=== PATIENT | female | born 1930 | race Native Hawaiian/Other Pacific Islander ===

== ENCOUNTER 2016-02-17 09:23 | Inpatient (IN) | payer OTHER | END 2016-03-19 08:00 | disposition still patient (30) | LOC: PAVB 09:23 | PROVIDERS: ADMIT Internal Medicine | DX: Z51.89 Encounter for other specified aftercare (principal) ==

== ENCOUNTER 2016-03-19 09:00 | Inpatient (IN) | payer OTHER ==
[~2016-03-19] VITALS: Ht 154.9 cm; Wt 70.3 kg
== END 2016-04-19 10:14 | disposition still patient (30) ==
LOC: PAVB 09:00
PROVIDERS: ADMIT Internal Medicine
DX: Z51.89 Encounter for other specified aftercare (principal)
CPT/HCPCS: J0897

== ENCOUNTER 2016-04-12 18:31 | Outpatient (CLI) | payer OTHER | END 2016-04-12 23:51 | disposition home or self-care (01) | LOC: LAB 18:31 | DX: R82.99 Other abnormal findings in urine (principal) | CPT/HCPCS: 81000; 87077; 87086; 87088; 87186 ==

== ENCOUNTER 2016-04-19 10:34 | Inpatient (IN) | payer OTHER | END 2016-05-17 09:39 | disposition still patient (30) | LOC: PAVB 10:34 | PROVIDERS: ADMIT Internal Medicine | DX: Z51.89 Encounter for other specified aftercare (principal) ==

== ENCOUNTER 2016-05-17 10:23 | Inpatient (IN) | payer OTHER | END 2016-06-17 08:06 | disposition still patient (30) | LOC: PAVB 10:23 | PROVIDERS: ADMIT Internal Medicine | DX: Z51.89 Encounter for other specified aftercare (principal) ==

== ENCOUNTER 2016-05-26 12:48 | Outpatient (CLI) | payer OTHER | END 2016-05-26 19:17 | disposition home or self-care (01) | LOC: LAB 12:48 | DX: R82.5 Elevated urine levels of drugs, medicaments and biological substances (principal); R82.99 Other abnormal findings in urine | CPT/HCPCS: 81000; 87088 ==

== ENCOUNTER 2016-06-17 09:21 | Inpatient (IN) | payer OTHER | END 2016-07-17 09:08 | disposition still patient (30) | LOC: PAVB 09:21 | PROVIDERS: ADMIT Internal Medicine | DX: Z51.89 Encounter for other specified aftercare (principal) ==

== ENCOUNTER 2016-07-04 16:16 | Outpatient (CLI) | payer OTHER | END 2016-07-04 19:16 | disposition home or self-care (01) | LOC: LAB 16:16 | DX: Z16.24 Resistance to multiple antibiotics (principal); E55.9 Vitamin D deficiency, unspecified | CPT/HCPCS: 82306; 87081 ==

== ENCOUNTER 2016-07-17 09:46 | Inpatient (IN) | payer OTHER | END 2016-08-17 09:31 | disposition still patient (30) | LOC: PAVB 09:46 | PROVIDERS: ADMIT Internal Medicine | DX: Z51.89 Encounter for other specified aftercare (principal) ==

== ENCOUNTER 2016-07-20 10:34 | Outpatient (CLI) | payer OTHER | END 2016-07-20 12:00 | disposition home or self-care (01) | LOC: RAD 10:34 | DX: M85.88 Other specified disorders of bone density and structure, other site (principal) ==

== ENCOUNTER 2016-08-06 11:44 | Outpatient (CLI) | payer OTHER | END 2016-08-06 13:00 | disposition home or self-care (01) | LOC: LAB 11:44 | DX: B43.2 Subcutaneous pheomycotic abscess and cyst (principal) | CPT/HCPCS: 87070; 87205 ==

== ENCOUNTER 2016-08-17 09:48 | Inpatient (IN) | payer OTHER | END 2016-09-16 15:20 | disposition still patient (30) | LOC: PAVB 09:48 | PROVIDERS: ADMIT Internal Medicine | DX: Z51.89 Encounter for other specified aftercare (principal) ==

== ENCOUNTER 2016-09-16 15:34 | Inpatient (IN) | payer OTHER | END 2016-10-17 09:42 | disposition still patient (30) | LOC: PAVB 15:34 | PROVIDERS: ADMIT Internal Medicine | DX: Z51.89 Encounter for other specified aftercare (principal) ==

== ENCOUNTER 2016-09-18 09:15 | Outpatient (CLI) | payer OTHER ==
[2016-09-18 09:36] LABS: PLATELET COUNT 197 K/uL (152-353)
[2016-09-18 10:32] LABS: POTASSIUM 4.1 mmol/L (3.6-5.2); SODIUM 144 mmol/L (136-145)
== END 2016-09-18 10:15 | disposition home or self-care (01) ==
LOC: LAB 09:15
PROVIDERS: Internal Medicine
DX: D51.8 Other vitamin B12 deficiency anemias (principal); E07.89 Other specified disorders of thyroid; D64.89 Other specified anemias; M81.0 Age-related osteoporosis without current pathological fracture; I50.9 Heart failure, unspecified
CPT/HCPCS: 80053; 82306; 82607; 84443; 85027

== ENCOUNTER 2016-10-17 10:06 | Inpatient (IN) | payer OTHER | END 2016-11-17 08:40 | disposition still patient (30) | LOC: PAVB 10:06 | PROVIDERS: ADMIT Internal Medicine | DX: Z51.89 Encounter for other specified aftercare (principal) ==

== ENCOUNTER 2016-11-17 09:03 | Inpatient (IN) | payer OTHER | END 2016-12-17 10:33 | disposition still patient (30) | LOC: PAVB 09:03 | PROVIDERS: ADMIT Internal Medicine | DX: Z51.89 Encounter for other specified aftercare (principal) ==

== ENCOUNTER 2016-12-17 10:35 | Inpatient (IN) | payer OTHER | END 2017-01-17 12:56 | disposition still patient (30) | LOC: PAVB 10:35 | PROVIDERS: ADMIT Internal Medicine ==

== ENCOUNTER 2017-01-17 13:34 | Inpatient (IN) | payer OTHER | END 2017-02-16 09:18 | disposition still patient (30) | LOC: PAVB 13:34 | PROVIDERS: ADMIT Internal Medicine ==

== ENCOUNTER 2017-02-16 09:32 | Inpatient (IN) | payer OTHER | END 2017-03-19 09:29 | disposition still patient (30) | LOC: PAVB 09:32 | PROVIDERS: ADMIT Internal Medicine ==

== ENCOUNTER 2017-03-19 09:56 | Inpatient (IN) | payer OTHER | END 2017-04-19 09:47 | disposition still patient (30) | LOC: PAVB 09:56 | PROVIDERS: ADMIT Internal Medicine ==

== ENCOUNTER 2017-03-21 04:09 | Outpatient (CLI) | payer OTHER ==
[2017-03-21 05:26] LABS: PLATELET COUNT 213 K/uL (152-353)
[2017-03-21 06:02] LABS: POTASSIUM 4.2 mmol/L (3.6-5.2); SODIUM 141 mmol/L (136-145)
== END 2017-03-21 21:33 | disposition home or self-care (01) ==
LOC: LAB 04:09
PROVIDERS: Internal Medicine
DX: M81.0 Age-related osteoporosis without current pathological fracture (principal); E03.8 Other specified hypothyroidism; D64.89 Other specified anemias
CPT/HCPCS: 36415; 80053; 82306; 82607; 84443; 85027

== ENCOUNTER 2017-04-19 10:30 | Inpatient (IN) | payer OTHER | END 2017-05-17 09:18 | disposition still patient (30) | LOC: PAVB 10:30 | PROVIDERS: ADMIT Internal Medicine ==

== ENCOUNTER 2017-05-17 09:47 | Inpatient (IN) | payer OTHER | END 2017-06-17 08:00 | disposition still patient (30) | LOC: PAVB 09:47 | PROVIDERS: ADMIT Internal Medicine ==

== ENCOUNTER 2017-06-17 09:00 | Inpatient (IN) | payer OTHER | END 2017-07-17 09:03 | disposition still patient (30) | LOC: PAVB 09:00 | PROVIDERS: ADMIT Internal Medicine ==

== ENCOUNTER 2017-07-17 09:26 | Inpatient (IN) | payer OTHER | END 2017-08-17 08:51 | disposition still patient (30) | LOC: PAVB 09:26 | PROVIDERS: ADMIT Internal Medicine ==

== ENCOUNTER 2017-08-17 09:11 | Inpatient (IN) | payer OTHER | END 2017-09-16 14:18 | disposition still patient (30) | LOC: PAVB 09:11 | PROVIDERS: ADMIT Internal Medicine ==

== ENCOUNTER 2017-09-16 14:45 | Inpatient (IN) | payer OTHER | END 2017-10-17 08:00 | disposition still patient (30) | LOC: PAVB 14:45 | PROVIDERS: ADMIT Internal Medicine ==

== ENCOUNTER 2017-09-20 11:37 | Outpatient (CLI) | payer OTHER ==
[2017-09-20 12:42] LABS: PLATELET COUNT 222 K/uL (152-353)
[2017-09-20 14:20] LABS: POTASSIUM 4.4 mmol/L (3.6-5.2)
== END 2017-09-20 19:39 | disposition home or self-care (01) ==
LOC: LAB 11:37
PROVIDERS: Internal Medicine
DX: E03.8 Other specified hypothyroidism (principal); M81.0 Age-related osteoporosis without current pathological fracture
CPT/HCPCS: 80053; 82306; 82607; 84443; 85027

== ENCOUNTER 2017-10-17 09:00 | Inpatient (IN) | payer OTHER | END 2017-11-17 10:17 | disposition still patient (30) | LOC: PAVB 09:00 | PROVIDERS: ADMIT Internal Medicine ==

== ENCOUNTER 2017-11-17 10:53 | Inpatient (IN) | payer OTHER | END 2017-12-17 09:18 | disposition still patient (30) | LOC: PAVB 10:53 | PROVIDERS: ADMIT Internal Medicine ==

== ENCOUNTER 2017-11-27 17:05 | Outpatient (CLI) | payer OTHER ==
[2017-11-27 17:28] LABS: PLATELET COUNT 221 K/uL (152-353)
== END 2017-11-27 22:27 | disposition home or self-care (01) ==
LOC: RAD 17:05
PROVIDERS: Internal Medicine
DX: R06.02 Shortness of breath (principal); R05 Cough
CPT/HCPCS: 80048; 83880; 85027

== ENCOUNTER 2017-12-17 10:01 | Inpatient (IN) | payer OTHER | END 2018-01-17 08:46 | disposition still patient (30) | LOC: PAVB 10:01 | PROVIDERS: ADMIT Internal Medicine ==

== ENCOUNTER 2018-01-11 13:33 | Outpatient (CLI) | payer OTHER | END 2018-01-11 19:33 | disposition home or self-care (01) | LOC: RAD 13:33 | DX: M79.89 Other specified soft tissue disorders (principal) ==

== ENCOUNTER 2018-01-17 09:41 | Inpatient (IN) | payer OTHER | END 2018-02-16 08:31 | disposition still patient (30) | LOC: PAVB 09:41 | PROVIDERS: ADMIT Internal Medicine ==

== ENCOUNTER 2018-02-06 09:57 | Outpatient (CLI) | payer OTHER | END 2018-02-06 19:36 | disposition home or self-care (01) | LOC: RESP 09:57 | DX: R60.9 Edema, unspecified (principal); M79.89 Other specified soft tissue disorders; R93.1 Abnormal findings on diagnostic imaging of heart and coronary circulation; Q21.0 Ventricular septal defect | CPT/HCPCS: 93306 ==

== ENCOUNTER 2018-02-16 09:06 | Inpatient (IN) | payer OTHER | END 2018-03-19 11:04 | disposition still patient (30) | LOC: PAVB 09:06 | PROVIDERS: ADMIT Internal Medicine ==

== ENCOUNTER 2018-03-05 12:05 | Outpatient (CLI) | payer OTHER | END 2018-03-05 22:39 | disposition home or self-care (01) | LOC: RAD 12:05 | DX: R13.12 Dysphagia, oropharyngeal phase (principal) ==

== ENCOUNTER 2018-03-19 11:16 | Inpatient (IN) | payer OTHER | END 2018-04-19 10:48 | disposition still patient (30) | LOC: PAVB 11:16 | PROVIDERS: ADMIT Internal Medicine ==

== ENCOUNTER 2018-03-25 04:37 | Outpatient (CLI) | payer OTHER ==
[2018-03-25 06:24] LABS: PLATELET COUNT 221 K/uL (152-353)
[2018-03-25 06:47] LABS: POTASSIUM 4.3 mmol/L (3.6-5.2)
== END 2018-03-25 20:14 | disposition home or self-care (01) ==
LOC: LAB 04:37
PROVIDERS: Internal Medicine
DX: E03.9 Hypothyroidism, unspecified (principal); M81.0 Age-related osteoporosis without current pathological fracture
CPT/HCPCS: 80053; 82607; 84443; 85027

== ENCOUNTER 2018-04-19 11:05 | Inpatient (IN) | payer OTHER | END 2018-05-17 10:16 | disposition still patient (30) | LOC: PAVB 11:05 | PROVIDERS: ADMIT Internal Medicine ==

== ENCOUNTER → 2018-05-16 | Day surgery (SDC) | payer OTHER | LOC: OR 08:00 | DX: Z53.8 Procedure and treatment not carried out for other reasons (principal); R13.19 Other dysphagia; R06.2 Wheezing | CPT/HCPCS: 94640; 94664; 94760 ==

== ENCOUNTER 2018-05-17 10:32 | Inpatient (IN) | payer OTHER | END 2018-06-17 10:36 | disposition still patient (30) | LOC: PAVB 10:32 | PROVIDERS: ADMIT Internal Medicine ==

== ENCOUNTER 2018-05-23 09:00 | Outpatient (CLI) | payer OTHER | END 2018-05-23 19:38 | disposition home or self-care (01) | LOC: US 09:00 | DX: R11.0 Nausea (principal); R60.9 Edema, unspecified ==

== ENCOUNTER 2018-05-28 09:02 | Outpatient (CLI) | payer OTHER | END 2018-05-28 19:37 | disposition home or self-care (01) | LOC: RESP 09:02 | DX: I50.9 Heart failure, unspecified (principal) | CPT/HCPCS: 93306 ==

== ENCOUNTER 2018-06-17 11:11 | Inpatient (IN) | payer OTHER | END 2018-07-17 11:11 | disposition still patient (30) | LOC: PAVB 11:11 | PROVIDERS: ADMIT Internal Medicine ==

== ENCOUNTER 2018-07-17 12:15 | Inpatient (IN) | payer OTHER | END 2018-08-17 08:34 | disposition still patient (30) | LOC: PAVB 12:15 | PROVIDERS: ADMIT Internal Medicine | DX: Z51.89 Encounter for other specified aftercare (principal) ==

== ENCOUNTER 2018-08-17 09:10 | Inpatient (IN) | payer OTHER | END 2018-09-16 09:36 | disposition still patient (30) | LOC: PAVB 09:10 | PROVIDERS: ADMIT Internal Medicine ==

== ENCOUNTER 2018-08-31 10:24 | Outpatient (CLI) | payer OTHER ==
[2018-08-31 10:54] LABS: PLATELET COUNT 278 K/uL (152-353)
[2018-08-31 11:02] LABS: POTASSIUM 4.4 mmol/L (3.6-5.2)
== END 2018-08-31 19:29 | disposition home or self-care (01) ==
LOC: LAB 10:24 → LABW 10:24 → LAB 19:29
PROVIDERS: Internal Medicine
DX: R06.02 Shortness of breath (principal); I95.89 Other hypotension
CPT/HCPCS: 80048; 83880; 85027

== ENCOUNTER 2018-09-16 10:37 | Inpatient (IN) | payer OTHER | END 2018-10-17 10:33 | disposition still patient (30) | LOC: PAVB 10:37 | PROVIDERS: ADMIT Internal Medicine ==

== ENCOUNTER 2018-09-16 19:17 | Outpatient (CLI) | payer OTHER | END 2018-09-16 23:45 | disposition home or self-care (01) | LOC: RAD 19:17 | DX: R05 Cough (principal); R06.02 Shortness of breath; I50.9 Heart failure, unspecified ==

== ENCOUNTER 2018-09-20 19:34 | Outpatient (CLI) | payer OTHER ==
[2018-09-20 19:57] LABS: PLATELET COUNT 305 K/uL (152-353)
[2018-09-20 20:14] LABS: POTASSIUM 3.6 mmol/L (3.6-5.2)
== END 2018-09-20 20:44 | disposition home or self-care (01) ==
LOC: LAB 19:34
PROVIDERS: Internal Medicine
DX: E03.8 Other specified hypothyroidism (principal); Z79.899 Other long term (current) drug therapy
CPT/HCPCS: 80053; 82607; 84443; 85027

== ENCOUNTER 2018-09-24 04:59 | Outpatient (CLI) | payer OTHER | END 2018-09-24 19:57 | disposition home or self-care (01) | LOC: LAB 04:59 | DX: D50.8 Other iron deficiency anemias (principal) | CPT/HCPCS: 36415; 82728; 83540 ==

== ENCOUNTER 2018-10-03 13:47 | Outpatient (CLI) | payer OTHER | END 2018-10-03 23:07 | disposition home or self-care (01) | LOC: RESP 13:47 | DX: J44.9 Chronic obstructive pulmonary disease, unspecified (principal); R05 Cough; R06.02 Shortness of breath ==

== ENCOUNTER 2018-10-17 10:58 | Inpatient (IN) | payer OTHER | END 2018-11-17 16:24 | disposition still patient (30) | LOC: PAVB 10:58 | PROVIDERS: ADMIT Internal Medicine ==

== ENCOUNTER 2018-10-23 13:46 | Outpatient (CLI) | payer OTHER | END 2018-10-23 23:48 | disposition home or self-care (01) | LOC: RAD 13:46 | DX: M79.672 Pain in left foot (principal); S90.32XA Contusion of left foot, initial encounter ==

== ENCOUNTER 2018-10-24 11:32 | Outpatient (CLI) | payer OTHER ==
[2018-10-24 11:44] LABS: PLATELET COUNT 172 K/uL (152-353)
[2018-10-24 12:01] LABS: POTASSIUM 3.3 mmol/L (3.6-5.2)
== END 2018-10-24 23:53 | disposition home or self-care (01) ==
LOC: LAB 11:32
PROVIDERS: Internal Medicine
DX: R41.82 Altered mental status, unspecified (principal)
CPT/HCPCS: 80053; 81000; 85027; 87077; 87086; 87088; 87186

== ENCOUNTER 2018-11-17 16:57 | Inpatient (IN) | payer OTHER | END 2018-12-17 09:19 | disposition still patient (30) | LOC: PAVB 16:57 | PROVIDERS: ADMIT Internal Medicine ==

== ENCOUNTER 2018-12-10 09:53 | Outpatient (CLI) | payer OTHER | END 2018-12-10 19:49 | disposition home or self-care (01) | LOC: MRI 09:53 | DX: M54.2 Cervicalgia (principal); R20.2 Paresthesia of skin ==

== ENCOUNTER 2018-12-11 15:26 | Outpatient (CLI) | payer OTHER | END 2018-12-11 20:34 | disposition home or self-care (01) | LOC: LABW 15:26 | DX: J44.9 Chronic obstructive pulmonary disease, unspecified (principal) ==

== ENCOUNTER 2018-12-17 10:04 | Inpatient (IN) | payer OTHER | END 2019-01-17 11:08 | disposition still patient (30) | LOC: PAVB 10:04 | PROVIDERS: ADMIT Internal Medicine ==

== ENCOUNTER 2018-12-17 13:24 | Outpatient (CLI) | payer OTHER | END 2018-12-17 23:29 | disposition home or self-care (01) | LOC: CT 13:24 | DX: J44.9 Chronic obstructive pulmonary disease, unspecified (principal); R05 Cough; R06.02 Shortness of breath; M85.80 Other specified disorders of bone density and structure, unspecified site; N32.81 Overactive bladder; K22.4 Dyskinesia of esophagus; K44.9 Diaphragmatic hernia without obstruction or gangrene; G25.0 Essential tremor; I50.9 Heart failure, unspecified; M51.87 Other intervertebral disc disorders, lumbosacral region; M50.80 Other cervical disc disorders, unspecified cervical region; G31.83 Neurocognitive disorder with Lewy bodies; E03.8 Other specified hypothyroidism; F06.8 Other specified mental disorders due to known physiological condition ==

== ENCOUNTER 2019-01-14 11:12 | Outpatient (CLI) | payer OTHER | END 2019-01-14 20:19 | disposition home or self-care (01) | LOC: RAD 11:12 | DX: R06.02 Shortness of breath (principal); R05 Cough; R09.02 Hypoxemia ==

== ENCOUNTER 2019-01-16 23:59 | Emergency (ER) | payer OTHER ==
[~2019-01-16] VITALS: Ht 162.6 cm; Wt 71.7 kg
[2019-01-17 01:46] LABS: PLATELET COUNT 179 K/uL (152-353)
[2019-01-17 02:00] LABS: SODIUM 145 mmol/L (136-145)
[2019-01-17 03:47] VITALS: BP 97/43; TEMP 97.2
== END 2019-01-17 03:47 | disposition still patient (30) ==
LOC: ED 23:59
PROVIDERS: Emergency Medicine
DX: I95.9 Hypotension, unspecified (principal); R06.02 Shortness of breath; J44.0 Chronic obstructive pulmonary disease with (acute) lower respiratory infection; I95.89 Other hypotension; J20.9 Acute bronchitis, unspecified; I20.9 Angina pectoris, unspecified; R09.02 Hypoxemia; E03.8 Other specified hypothyroidism
CPT/HCPCS: 36415; 80053; 83605; 83880; 84484; 85027; 87502; 93005; 94664; 96360; 99220; 99284; G0378; G0379

== ENCOUNTER 2019-01-17 03:19 | Observation (INO) | payer OTHER ==
[~2019-01-17] VITALS: Ht 162.6 cm; Wt 73.5 kg
[2019-01-17 04:05] VITALS: BP 117/46; TEMP 97.5; Ht 162.6 cm; Wt 73.5 kg
[2019-01-17 08:00] VITALS: BP 101/49; TEMP 97.7
[2019-01-17 12:00] VITALS: BP 141/63; TEMP 98.6
--- NOTE | 2019-01-17 16:42 | NUR ---
1430 PT DC BACK TO [facility] . SHALOM JOSEPH STATED SHE HAD SPOKE WITH SHALOM BOWMAN AND REC'D ORDERS TO CON'T PT HOME MEDS AND START STEROID DOSE PACK. PT DC'D VIA W/C ACCOMPANIED BY CAMRYN MARQUES.
== END 2019-01-17 14:40 ==
LOC: MED/SURG 03:19
PROVIDERS: ADMIT Emergency Medicine
DX: J44.0 Chronic obstructive pulmonary disease with (acute) lower respiratory infection (principal); I95.89 Other hypotension; J20.9 Acute bronchitis, unspecified; I50.9 Heart failure, unspecified; R09.02 Hypoxemia; E03.8 Other specified hypothyroidism
CPT/HCPCS: 99220; G0378; G0379

== ENCOUNTER 2019-01-17 11:25 | Inpatient (IN) | payer OTHER | END 2019-02-16 08:00 | disposition still patient (30) | LOC: PAVB 11:25 | PROVIDERS: ADMIT Internal Medicine ==

== ENCOUNTER 2019-02-16 10:10 | Inpatient (IN) | payer OTHER | END 2019-03-19 08:33 | disposition still patient (30) | LOC: PAVB 10:10 | PROVIDERS: ADMIT Internal Medicine ==

== ENCOUNTER 2019-03-19 08:43 | Inpatient (IN) | payer OTHER | END 2019-04-19 09:55 | disposition still patient (30) | LOC: PAVB 08:43 | PROVIDERS: ADMIT Internal Medicine ==

== ENCOUNTER 2019-03-25 07:03 | Outpatient (CLI) | payer OTHER ==
[2019-03-25 08:08] LABS: PLATELET COUNT 176 K/uL (152-353)
== END 2019-03-25 17:00 | disposition home or self-care (01) ==
LOC: LAB 07:03
PROVIDERS: Internal Medicine
DX: E03.8 Other specified hypothyroidism (principal); D64.89 Other specified anemias; M85.80 Other specified disorders of bone density and structure, unspecified site
CPT/HCPCS: 80053; 82607; 84443; 85027

== ENCOUNTER 2019-04-19 10:26 | Inpatient (IN) | payer OTHER | END 2019-05-18 13:13 | disposition still patient (30) | LOC: PAVB 10:26 | PROVIDERS: ADMIT Internal Medicine ==

== ENCOUNTER 2019-05-18 13:51 | Inpatient (IN) | payer OTHER | END 2019-06-18 09:39 | disposition still patient (30) | LOC: PAVB 13:51 | PROVIDERS: ADMIT Internal Medicine ==

== ENCOUNTER 2019-06-18 10:08 | Inpatient (IN) | payer OTHER | END 2019-07-18 09:00 | disposition still patient (30) | LOC: PAVB 10:08 | PROVIDERS: ADMIT Internal Medicine ==

== ENCOUNTER 2019-07-18 09:43 | Inpatient (IN) | payer OTHER | END 2019-08-18 09:09 | disposition still patient (30) | LOC: PAVB 09:43 | PROVIDERS: ADMIT Internal Medicine | CPT/HCPCS: 87635; G2023; U0002 ==

== ENCOUNTER 2019-08-18 09:27 | Inpatient (IN) | payer OTHER ==
[2019-09-07] MEDS ORDERED: ALLEGRA ALRG180 M1 PO (05:00)
[2019-09-07] MEDS ORDERED: DONE5TAB PO (05:02)
[2019-09-07] MEDS ORDERED: ASA LOW DOSE81 MG PO (05:06)
[2019-09-07] MEDS ORDERED: DIPH25CA90 PO ×2 (05:09→05:13)
[2019-09-07] MEDS ORDERED: IPRAAER INH (05:21)
[2019-09-07] MEDS ORDERED: DOCUSIL100 MG PO (05:24)
[2019-09-07] MEDS ORDERED: GLYCOLAX3350 NF PO (05:26)
[2019-09-07] MEDS ORDERED: INCRUSE EL62.5 MCG/I INH (05:32)
[2019-09-07] MEDS ORDERED: GENERLAC10 GM/15 M PO ×2 (05:33→05:35)
[2019-09-07] MEDS ORDERED: LAMICTAL XR50 MG PO (05:37)
[2019-09-07] MEDS ORDERED: FURO40TA93 PO (06:17)
[2019-09-07] MEDS ORDERED: LEXAPRO10 MG PO (06:19)
[2019-09-07] MEDS ORDERED: MELATONIN TR10 MG PO (06:24)
[2019-09-07] MEDS ORDERED: ESCI10TA PO (06:26)
[2019-09-07] MEDS ORDERED: MIRAPEX0.25 MG PO (06:29)
[2019-09-07] MEDS ORDERED: MYRBETRIQ50 MG PO (06:31)
[2019-09-07] MEDS ORDERED: GABA300C2 PO ×2 (06:32→07:19)
[2019-09-07] MEDS ORDERED: GABA400C2 PO (07:20)
[2019-09-07] MEDS ORDERED: CALCIUM + D600 MG PO (07:34)
[2019-09-07] MEDS ORDERED: POTASSIUM CHLO20 ME1 PO (07:41)
[2019-09-07] MEDS ORDERED: OMEP40CA PO (07:42)
[2019-09-07] MEDS ORDERED: DENO60SO SC (07:45)
[2019-09-07] MEDS ORDERED: SENNA LAX8.6 MG PO (07:46)
[2019-09-07] MEDS ORDERED: CARB25TA29 PO (07:48)
[2019-09-07] MEDS ORDERED: SEROQUEL200 MG PO (07:48)
[2019-09-07] MEDS ORDERED: BUDE1AER5 INH (07:49)
[2019-09-07] MEDS ORDERED: LEVO0.0529 PO (07:51)
[2019-09-07] MEDS ORDERED: ACET-206 PO (07:52)
[2019-09-07] MEDS ORDERED: ACET-689 PO (07:53)
[2019-09-07] MEDS ORDERED: VITAMIN D-40400 UNIT PO (07:54)
[2019-09-07] MEDS ORDERED: ALPR0.2566 PO (07:55)
[2019-09-07] MEDS ORDERED: ONDA4TAB3 PO (07:57)
[2019-09-09] MEDS ORDERED: CEFU250T2 PO (11:39)
== END 2019-09-17 10:19 | disposition still patient (30) ==
LOC: PAVB 09:27
PROVIDERS: ADMIT Internal Medicine
DX: N30.90 Cystitis, unspecified without hematuria (principal); I50.9 Heart failure, unspecified; M62.81 Muscle weakness (generalized); R26.89 Other abnormalities of gait and mobility; R48.8 Other symbolic dysfunctions; N32.81 Overactive bladder; F02.80 Dementia in other diseases classified elsewhere, unspecified severity, without behavioral disturbance, psychotic disturbance, mood disturbance, and anxiety
CPT/HCPCS: 87635; U0002

== ENCOUNTER 2019-09-06 11:47 | Inpatient (IN) | payer OTHER ==
[2019-09-06] VITALS (10 sets, daily range): BP systolic 91–113; BP diastolic 40–53; TEMP 98.9–99.5; Ht 160 cm; Wt 68.9 kg
[~2019-09-06] VITALS: Ht 160 cm; Wt 68.9 kg
[2019-09-06 12:37] LABS: PLATELET COUNT 208 K/uL (152-353)
[2019-09-06 12:47] LABS: POTASSIUM 5.1 mmol/L (3.6-5.2); SODIUM 147 mmol/L (136-145)
[2019-09-07] VITALS: BP 101/40; TEMP 99
[2019-09-07 03:47] VITALS: BP 111/44; TEMP 98.6
[2019-09-07] MEDS ORDERED: ALLEGRA ALRG180 M1 PO (05:00)
[2019-09-07] MEDS ORDERED: DONE5TAB PO (05:02)
[2019-09-07] MEDS ORDERED: ASA LOW DOSE81 MG PO (05:06)
[2019-09-07] MEDS ORDERED: DIPH25CA90 PO ×2 (05:09→05:13)
[2019-09-07] MEDS ORDERED: IPRAAER INH (05:21)
[2019-09-07] MEDS ORDERED: DOCUSIL100 MG PO (05:24)
[2019-09-07] MEDS ORDERED: GLYCOLAX3350 NF PO (05:26)
[2019-09-07] MEDS ORDERED: INCRUSE EL62.5 MCG/I INH (05:32)
[2019-09-07] MEDS ORDERED: GENERLAC10 GM/15 M PO ×2 (05:33→05:35)
[2019-09-07] MEDS ORDERED: LAMICTAL XR50 MG PO (05:37)
[2019-09-07 05:42] LABS: POTASSIUM 4.2 mmol/L (3.6-5.2)
[2019-09-07 05:56] LABS: PLATELET COUNT 151 K/uL (152-353)
[2019-09-07] MEDS ORDERED: FURO40TA93 PO (06:17)
[2019-09-07] MEDS ORDERED: LEXAPRO10 MG PO (06:19)
[2019-09-07] MEDS ORDERED: MELATONIN TR10 MG PO (06:24)
[2019-09-07] MEDS ORDERED: ESCI10TA PO (06:26)
[2019-09-07] MEDS ORDERED: MIRAPEX0.25 MG PO (06:29)
[2019-09-07] MEDS ORDERED: MYRBETRIQ50 MG PO (06:31)
[2019-09-07] MEDS ORDERED: GABA300C2 PO ×2 (06:32→07:19)
[2019-09-07] MEDS ORDERED: GABA400C2 PO (07:20)
[2019-09-07] MEDS ORDERED: CALCIUM + D600 MG PO (07:34)
[2019-09-07] MEDS ORDERED: POTASSIUM CHLO20 ME1 PO (07:41)
[2019-09-07] MEDS ORDERED: OMEP40CA PO (07:42)
[2019-09-07] MEDS ORDERED: DENO60SO SC (07:45)
[2019-09-07] MEDS ORDERED: SENNA LAX8.6 MG PO (07:46)
[2019-09-07] MEDS ORDERED: CARB25TA29 PO (07:48)
[2019-09-07] MEDS ORDERED: SEROQUEL200 MG PO (07:48)
[2019-09-07] MEDS ORDERED: BUDE1AER5 INH (07:49)
[2019-09-07] MEDS ORDERED: LEVO0.0529 PO (07:51)
[2019-09-07] MEDS ORDERED: ACET-206 PO (07:52)
[2019-09-07] MEDS ORDERED: ACET-689 PO (07:53)
[2019-09-07] MEDS ORDERED: VITAMIN D-40400 UNIT PO (07:54)
[2019-09-07] MEDS ORDERED: ALPR0.2566 PO (07:55)
[2019-09-07] MEDS ORDERED: ONDA4TAB3 PO (07:57)
[2019-09-07 08:00] VITALS: BP 111/45; TEMP 98.2
[2019-09-07 12:00] VITALS: TEMP 97.6
[2019-09-07 16:00] VITALS: BP 97/40; TEMP 97.9
[2019-09-07 20:00] VITALS: BP 106/47; TEMP 97.9
[2019-09-08] VITALS (7 sets, daily range): BP systolic 80–120; BP diastolic 36–57; TEMP 97.6–98.5
[2019-09-08 06:15] LABS: PLATELET COUNT 148 K/uL (152-353)
[2019-09-08 06:22] LABS: POTASSIUM 3.8 mmol/L (3.6-5.2)
[2019-09-09 03:44] VITALS: BP 109/48; TEMP 97.7
[2019-09-09 08:00] VITALS: BP 144/66; TEMP 99.9
[2019-09-09] MEDS ORDERED: CEFU250T2 PO (11:39)
[2019-09-09 12:00] VITALS: BP 111/54; TEMP 98
== END 2019-09-09 19:01 | DRG 690 ==
LOC: ED 11:47 → MED/SURG 14:10
PROVIDERS: Internal Medicine Endocrinology, Diabetes & Metabolism; ADMIT Emergency Medicine Emergency Medical Services
DX: N30.00 Acute cystitis without hematuria (principal); F31.89 Other bipolar disorder; J96.11 Chronic respiratory failure with hypoxia; B96.20 Unspecified Escherichia coli [E. coli] as the cause of diseases classified elsewhere; E03.8 Other specified hypothyroidism; K21.9 Gastro-esophageal reflux disease without esophagitis; F41.8 Other specified anxiety disorders; F03.90 Unspecified dementia, unspecified severity, without behavioral disturbance, psychotic disturbance, mood disturbance, and anxiety; N32.81 Overactive bladder; M81.8 Other osteoporosis without current pathological fracture; J44.9 Chronic obstructive pulmonary disease, unspecified; Z99.81 Dependence on supplemental oxygen; I11.0 Hypertensive heart disease with heart failure; I50.9 Heart failure, unspecified
CPT/HCPCS: 36415; 80048; 80053; 81000; 83605; 83880; 84484; 85027; 87040; 87077; 87086; 87088; 87185; 87186; 87205; 87635; 93005; 94640; 94664; 94760; 96360; 96361; 96365; 96368; 96375; 99284; J0696; J1650; J1940; J2060; J2405; U0002

== ENCOUNTER 2019-09-17 10:55 | Inpatient (IN) | payer OTHER ==
[~2019-09-17 10:55] MED LIST: ACET-206 PO; ACET-689 PO; ALLEGRA ALRG180 M1 PO; ALPR0.2566 PO; ASA LOW DOSE81 MG PO; BUDE1AER5 INH; CALCIUM + D600 MG PO; CARB25TA29 PO; CEFU250T2 PO; DENO60SO SC; DIPH25CA90 PO; DOCUSIL100 MG PO; DONE5TAB PO; ESCI10TA PO; FURO40TA93 PO; GABA300C2 PO; GABA400C2 PO; GENERLAC10 GM/15 M PO; GLYCOLAX3350 NF PO; INCRUSE EL62.5 MCG/I INH; IPRAAER INH; LAMICTAL XR50 MG PO; LEVO0.0529 PO; LEXAPRO10 MG PO; MELATONIN TR10 MG PO; MIRAPEX0.25 MG PO; MYRBETRIQ50 MG PO; OMEP40CA PO; ONDA4TAB3 PO; POTASSIUM CHLO20 ME1 PO; SENNA LAX8.6 MG PO; SEROQUEL200 MG PO; VITAMIN D-40400 UNIT PO
== END 2019-10-18 09:11 | disposition still patient (30) ==
LOC: PAVB 10:55
PROVIDERS: ADMIT Internal Medicine
DX: N30.90 Cystitis, unspecified without hematuria (principal); I50.9 Heart failure, unspecified; M62.81 Muscle weakness (generalized); R26.89 Other abnormalities of gait and mobility; R48.8 Other symbolic dysfunctions; N32.81 Overactive bladder; F02.80 Dementia in other diseases classified elsewhere, unspecified severity, without behavioral disturbance, psychotic disturbance, mood disturbance, and anxiety
CPT/HCPCS: 80053; 82306; 82607; 84443; 85027; 87635; U0002

== ENCOUNTER 2019-09-19 07:15 | Outpatient (CLI) | payer OTHER ==
[2019-09-19 08:16] LABS: PLATELET COUNT 225 K/uL (152-353)
[2019-09-19 08:36] LABS: POTASSIUM 4.3 mmol/L (3.6-5.2)
== END 2019-09-19 19:33 | disposition home or self-care (01) ==
LOC: LAB 07:15
PROVIDERS: Internal Medicine
DX: E03.8 Other specified hypothyroidism (principal); D64.89 Other specified anemias; M85.88 Other specified disorders of bone density and structure, other site
CPT/HCPCS: 80053; 82306; 82607; 84443; 85027

== ENCOUNTER 2019-10-18 09:31 | Inpatient (IN) | payer OTHER | END 2019-11-18 12:00 | disposition still patient (30) | LOC: PAVB 09:31 | PROVIDERS: ADMIT Internal Medicine | DX: N30.90 Cystitis, unspecified without hematuria (principal); I50.9 Heart failure, unspecified; M62.81 Muscle weakness (generalized); R26.89 Other abnormalities of gait and mobility; R48.8 Other symbolic dysfunctions; N32.81 Overactive bladder; F02.80 Dementia in other diseases classified elsewhere, unspecified severity, without behavioral disturbance, psychotic disturbance, mood disturbance, and anxiety ==

== ENCOUNTER 2019-11-03 05:06 | Outpatient (CLI) | payer OTHER | END 2019-11-03 20:14 | disposition home or self-care (01) | LOC: LAB 05:06 | DX: E55.9 Vitamin D deficiency, unspecified (principal); M15.8 Other polyosteoarthritis; M85.88 Other specified disorders of bone density and structure, other site | CPT/HCPCS: 82306; 82310 ==

== ENCOUNTER 2019-11-18 12:53 | Inpatient (IN) | payer OTHER | END 2019-12-18 11:03 | disposition still patient (30) | LOC: PAVB 12:53 | PROVIDERS: ADMIT Internal Medicine | DX: J44.1 Chronic obstructive pulmonary disease with (acute) exacerbation (principal); I50.9 Heart failure, unspecified; M62.81 Muscle weakness (generalized); R26.9 Unspecified abnormalities of gait and mobility; R53.1 Weakness; Z74.1 Need for assistance with personal care; G31.83 Neurocognitive disorder with Lewy bodies; F31.4 Bipolar disorder, current episode depressed, severe, without psychotic features; F41.1 Generalized anxiety disorder; K22.70 Barrett's esophagus without dysplasia; M15.9 Polyosteoarthritis, unspecified ==

== ENCOUNTER 2019-12-18 11:23 | Inpatient (IN) | payer OTHER | END 2020-01-18 08:00 | disposition still patient (30) | LOC: PAVB 11:23 | PROVIDERS: ADMIT Internal Medicine ==

== ENCOUNTER 2020-01-18 09:00 | Inpatient (IN) | payer OTHER | END 2020-02-17 09:58 | disposition still patient (30) | LOC: PAVB 09:00 | PROVIDERS: ADMIT Internal Medicine; ATTEND Internal Medicine ==

== ENCOUNTER 2020-02-17 10:58 | Inpatient (IN) | payer OTHER | END 2020-03-19 09:03 | disposition still patient (30) | LOC: PAVB 10:58 | PROVIDERS: ADMIT Internal Medicine; ATTEND Internal Medicine ==

== ENCOUNTER 2020-02-23 16:39 | Outpatient (CLI) | payer OTHER ==
[2020-02-23 17:53] LABS: PLATELET COUNT 202 K/uL (152-353)
[2020-02-23 18:13] LABS: POTASSIUM 4.4 mmol/L (3.6-5.2)
== END 2020-02-23 19:10 | disposition home or self-care (01) ==
LOC: LAB 16:39
PROVIDERS: ATTEND Internal Medicine
DX: R41.0 Disorientation, unspecified (principal)
CPT/HCPCS: 80053; 85027

== ENCOUNTER 2020-03-06 06:27 | Outpatient (CLI) | payer OTHER | END 2020-03-06 19:01 | disposition home or self-care (01) | LOC: LAB 06:27 | PROVIDERS: ATTEND Internal Medicine | DX: N39.0 Urinary tract infection, site not specified (principal) | CPT/HCPCS: 81000 ==

== ENCOUNTER 2020-03-19 09:14 | Inpatient (IN) | payer OTHER | END 2020-04-19 14:55 | disposition still patient (30) | LOC: PAVB 09:14 | PROVIDERS: ADMIT Internal Medicine; ATTEND Internal Medicine ==

== ENCOUNTER 2020-03-25 07:08 | Outpatient (CLI) | payer OTHER ==
[2020-03-25 08:33] LABS: PLATELET COUNT 170 K/uL (152-353)
[2020-03-25 09:02] LABS: POTASSIUM 4.4 mmol/L (3.6-5.2)
== END 2020-03-25 21:07 | disposition home or self-care (01) ==
LOC: LAB 07:08
PROVIDERS: ATTEND Internal Medicine
DX: E03.8 Other specified hypothyroidism (principal); I10 Essential (primary) hypertension; M85.88 Other specified disorders of bone density and structure, other site; D64.89 Other specified anemias
CPT/HCPCS: 80053; 82306; 82607; 84443; 85027

== ENCOUNTER 2020-04-19 15:06 | Inpatient (IN) | payer OTHER | END 2020-05-17 09:54 | disposition still patient (30) | LOC: PAVB 15:06 | PROVIDERS: ADMIT Internal Medicine; ATTEND Internal Medicine ==

== ENCOUNTER 2020-05-05 06:59 | Outpatient (CLI) | payer OTHER ==
[2020-05-05 08:08] LABS: PLATELET COUNT 166 K/uL (152-353)
[2020-05-05 08:10] LABS: POTASSIUM 4.3 mmol/L (3.6-5.2)
== END 2020-05-05 20:48 | disposition home or self-care (01) ==
LOC: LAB 06:59
PROVIDERS: ATTEND Internal Medicine
DX: Z00.00 Encounter for general adult medical examination without abnormal findings (principal); R68.89 Other general symptoms and signs; Z79.899 Other long term (current) drug therapy
CPT/HCPCS: 80053; 85027

== ENCOUNTER 2020-05-13 07:41 | Day surgery (SDC) | payer OTHER | END 2020-05-13 09:59 | disposition home or self-care (01) | LOC: OR 07:41 | PROVIDERS: ATTEND Internal Medicine | PROC: 0DB68ZZ Excision of Stomach, Via Natural or Artificial Opening Endoscopic (ICD-10-PCS; principal; 2020-05-13) | PROC: 0D738ZZ Dilation of Lower Esophagus, Via Natural or Artificial Opening Endoscopic (ICD-10-PCS; 2020-05-13) | DX: K29.50 Unspecified chronic gastritis without bleeding (principal); K22.2 Esophageal obstruction; R13.19 Other dysphagia | CPT/HCPCS: J2704 ==

== ENCOUNTER 2020-05-23 19:21 | Inpatient (IN) | payer OTHER ==
[2020-05-23] VITALS (16 sets, daily range): BP systolic 78–98; BP diastolic 33–42; TEMP 98.1–99.2; Ht 162.6 cm; Wt 72.8 kg
[~2020-05-23] VITALS: Ht 162.6 cm; Wt 72.8 kg
[2020-05-23 20:01] LABS: PLATELET COUNT 216 K/uL (152-353)
[2020-05-23 20:06] LABS: POTASSIUM 5.4 mmol/L (3.6-5.2); SODIUM 142 mmol/L (136-145)
--- NOTE | 2020-05-23 22:30 | NUR ---
PT O2 SAT 85-83% ON 50% VENTI MASK, RESPIRATORY AT BEDSIDE WITH MUSIC SUPERVISOR AND NEW ORDER OBTAINED FOR RESPIRATORY TO PLACE PT ON HIGH FLOW NC. PT PLACED ON HIGH FLOW NC PER RESPIRATORY AT THIS TIME. O2 SAT STARTING TO INCREASE. AT 2233 O2 SAT HAS INCREASED TO 87% CONTINUES TO INCREASE, NO ACUTE DISTRESS NOTED, RESP RATE 20-22. NOTE WHEN PT BEING PLACE ON HIGH FLOW NC AND WAS ON ROOM AIR O2 SAT DROPPED TO 70%. RESPIRATORY AND MUSIC SUPERVISOR REMAIN AT BEDSIDE WITH PT. NOT LOOSE/WET SOUNDING COUGH AT TIMES BUT NOT PRODUCTIVE. WILL CONTINUE TO MONITOR CLOSELY, RAILS UP X3, BED IN LOW POSITION, ENCOURAGED TO CALL NEEDED.
--- NOTE | 2020-05-23 22:55 | NUR ---
O2 SAT HAS NOW INCREASED TO 90%, PT REMAINS ON HIGH FLOW NC. SETTINGS ARE 60 LITERS AND FIO2 OF 80%, NO ACUTE DISTRESS NOTED, PT RESTING OFF AND ON WITH EYES CLOSED, WILL MONITOR CLOSELY, RAILS UP, BED IN LOW POSITION.
[2020-05-24] VITALS (41 sets, daily range): BP systolic 85–116; BP diastolic 33–53; TEMP 98.1–99.4
--- NOTE | 2020-05-24 00:02 | NUR ---
RESTING WITH EYES CLOSED, NO S/S OF PAIN OR DISTRESS NOTED, 20G IV INTACT TO R AC, 20G IV INTACT TO L WRIST WITH ANTIBIOTIC ONGOING, 16F LOCO PATENT DRAINING TO BEDSIDE, HIGH FLOW NC IN USE AT 60 LITERS AND FIO2 OF 80% O2 SAT 90%, VITALS BEING MONITORED CLOSELY ALONG WITH BLOOD PRESSURE(LOW ON ADMIT AND IN ER, IS AWARE). FOOD SAFETY MANAGER IN USE WITH REGULAR RATE IN 70s. WILL MONITOR CLOSELY, RAILS UP X3, BED IN LOW POSITION.
--- NOTE | 2020-05-24 02:12 | NUR ---
PT AWAKE WITH NO ACUTE DISTRESS NOTED, TALKING WITH SONG LYRICIST, DENIES ANY PAIN OR OTHER PROBLEMS, IV SITES INTACT, LOCO PATENT DRAINING TO BEDSIDE, RESP RATE NONLABORED, REMAINS ON HIGH FLOW NC, VITALS CONTINUE TO BE MONITORED CLOSELY, DRIVER MEDIC IN USE. PT STATES SHE IS HOT, BLANKET TAKEN OFF OF PT PER REQUEST AND PT REPOSITIONED IN BED, WILL MONITOR CLOSELY, RAILS UP X3, BED IN LOW POSITION, ENCOURAGED TO CALL NEEDED.
[2020-05-24] MEDS ORDERED: ZYRTEC ALLERGY10 M1 PO (02:36)
[2020-05-24] MEDS ORDERED: CALCIUM 600600 MG PO (02:40)
[2020-05-24] MEDS ORDERED: OMEPRAZOLE DR40 MG PO (02:47)
[2020-05-24] MEDS ORDERED: GUAIFENESIN/DEX1 LI2 PO (03:05)
[2020-05-24] MEDS ORDERED: PHYSICIANS1000 MCG/M IM (03:23)
[2020-05-24] MEDS ORDERED: TRAM50TA PO (03:27)
--- NOTE | 2020-05-24 03:45 | NUR ---
RESTING WITH EYES CLOSED, NO S/S OF PAIN OR DISTRESS NOTED, VITALS BEING MONITORED CLOSELY, RAILS UP, BED IN LOW POSITION.
--- NOTE | 2020-05-24 04:38 | NUR ---
0433 GAVE TYLENOL 500MG PO PRN PER PT REQUEST FOR CONSTANT HEADACHE THAT IS A "7" ON SCALE, THEN AT 0438 PT REQUESTS SOMETHING FOR NAUSEA GAVE ZOFRAN 4MG SLOW IVP PRN. WILL MONITOR CLOSELY, RAILS UP, BED IN LOW POSITION.
--- NOTE | 2020-05-24 05:00 | NUR ---
RESTING WITH EYES CLOSED, NO S/S OF PAIN OR NAUSEA OR DISTRESS NOTED, WILL MONITOR, RAILS UP, BED IN LOW POSITION.
--- NOTE | 2020-05-24 05:27 | NUR ---
AWAKE TALKING WITH RN PALLIATIVE CARE FROM ACROSS THE ROOM, CONFUSED KNOWS SHE IS AT HOSPITAL BUT THINKS [facility] [place] [facility] [facility]. REMEMBERS THAT SHE IS SICK AND RN PALLIATIVE CARE GAVE HER ANTIBIOTICS AND REMEMBERS DETAILS TO CARE GIVEN DURING THE NIGHT BY RN PALLIATIVE CARE. REORIENTED PT AND EXPLAINED THAT WOULD BE HERE TO SEE HER THIS MORNING AND THAT SHE WILL GET SOME MORE ANTIBIOTICS. PT REMAINS CONFUSED OFF AND ON, CONFUSED TO TIME ALSO. BOTH IV SITES INTACT AND 1 BAG OF NS ONGOING, RESP RATE 22, O2 SAT 93% ON HIGH FLOW NC 60 LITERS AND FIO2 80%, VITALS BEING MONITORED CLOSELY, RAILS UP, BED IN LOW POSITION, HOB ELEVATED, LOCO PATENT DRAINING TO BEDSIDE.
[2020-05-24 06:39] LABS: POTASSIUM 4.7 mmol/L (3.6-5.2)
[2020-05-24 07:08] LABS: PLATELET COUNT 165 K/uL (152-353)
--- NOTE | 2020-05-24 07:43 | NUR ---
REPORT GIVEN BY DOMINIQUE HOLGUIN RN. SHIFT ASSESSMENT COMPLETED. PATIENT HAS TWO IV SITES ONE 20G TO THE LEFT WRIST AND ONE 20G TO THE RIGHT AC BOTH ARE INFUSING WITHOUT DIFFICULTY AND HAVING NS AT 100 ML/HR AND ZOSYN AT 100 ML/HR THERE ARE NO SIGNS OF INFILTRATION OR PHLEBITITS NOTED. RT IS AT THE BEDSIDE GIVING BREATHING TREATMENTS AT THIS TIME. PATIENT IS RECEPETIVE TO TREATMENT AND IS TOLERATING IT WELL.
--- NOTE | 2020-05-24 08:26 | NUR ---
IV 22G X 1 ATTEMPT STARTED TO THE RIGHT FOREARM W/O DIFFICULTY. PATIENT TOLERATED WELL.
--- NOTE | 2020-05-24 09:08 | NUR ---
SPOKE WITH AND SHE WAS UPDATED ON PATIENTS VITALS AND LABS. NEW ORDER GIVEN TO DECREASE FLUIDS FROM 150ML/HR TO 75 ML/HR.
--- NOTE | 2020-05-24 10:14 | NUR ---
PATIENT IS RESTING COMFORTABLY WITH CURRENT SPO2 90%, B/P 94/45.
--- NOTE | 2020-05-24 11:29 | NUR ---
RESPIRATORY HERE AT THE BEDSIDE DOING BREATHING TREATMENT.
--- NOTE | 2020-05-24 12:26 | NUR ---
PATIENT ASSISTED WITH SETTING UP HER LUNCH TRAY. PATIENT IS ABLE TO EAT ON HER OWN BUT SHE HAS MODERATE SHAKING OF BOTH HANDS WHEN PUTTING THE SPOON TO HER MOUTH. PATIENT ALSO STATED " I DO NOT LIKE THIS FOOD LIKE THIS", PATIENT IS ON A PUREE DIET. PATIENT ENCOURAGED TO TAKE SMALL BITES.
--- NOTE | 2020-05-24 13:19 | NUR ---
ROUNDING ON PATIENT AT THIS TIME. NO NEW ORDERS GIVEN.
--- NOTE | 2020-05-24 14:00 | NUR ---
PATIENT HAS PERIODS OF CONFUSION STATING " THERE IS A MAN IN HERE BE CAREFUL, HE IS MOVING THE CHAIR". REDIRECTED PATIENT BUT SHE IS IS NOT EASILY REDIRECTED SHE REQUIRES MAX REDIRECTION. SIDERAILS UP X2, CALL SWIFT WITHIN REACH.
--- NOTE | 2020-05-24 16:25 | NUR ---
RT AT THE BEDSIDE DOING BREATHING TREATMENT.
--- NOTE | 2020-05-24 17:23 | NUR ---
PATIENT ASSISTED WITH EATING BUT SHE ONLY TOOK A FEW BITES AND THEN STATED " I CAN'T EAT ANYMORE OF THIS", PATIENT IS ON A PUREE DIET AND DOES NOT LIKE HER DIET. PATIENT DID DRINK HER TEA.
--- NOTE | 2020-05-24 18:17 | NUR ---
PATIENT COMPLAINING OF GENERALIZED PAIN. PATIENT GIVEN TRAMADOL ORDERED. TORRES LANDIS SCORE 5
--- NOTE | 2020-05-24 18:17 | NUR ---
PATIENT COMPLAINS OF GENERALIZED PAIN. PATIENT GIVEN TRAMADOL ORDERED. TORRES LANDIS SCORE OF 5. PATIENT COMPLAINS OF PAIN TO LOWER EXTREMITIES. WILL REASSESS POST MEDICATION.
--- NOTE | 2020-05-24 20:00 | NUR ---
PM ASSESSMENT WAS COMPLETED. PT WAS ABLE TO COMMUNICATE WITH HER DAUGHTER WAYNE USING ICU PHONE. IV IS CONVERTED TO SALINE LOCK. SITE IS WITHOUT REDNESS OR EDEMA. PT WAS ABLE TO TOLERATE DRINKING WATER. LOCO CATHETAR IS INTACT. BEDSIDE TABLE IN EASY REACH.
--- NOTE | 2020-05-24 21:20 | NUR ---
PT WAS ABLE TO TAKE HER PM MEDICATIONS. PT HAS LOOSE RATTLING COUGH. 02 SATS ARE 90 PERCENT.
--- NOTE | 2020-05-24 22:41 | NUR ---
PT WAS REPOSITIONED ON BED. LOWER EXTREMITIES ELEVATED ON PILLOW. PT CONTINUES TO REST AND USING HIGH FLOW NASAL CANNULA. HR IS 86. O2 SATS IMPROVED TO 93 PERCENT.
[2020-05-25] VITALS (20 sets, daily range): BP systolic 97–122; BP diastolic 37–61; TEMP 97.2–98.7
--- NOTE | 2020-05-25 00:16 | NUR ---
PT TOLERATED AEROSOL TREATMENT. PT IS ALERT AND DENIES ANY PAIN OR DISCOMFORT. PTS SATUATION IS 89-92 PERCENT. HR IS SINUS RHYTHM AT PRESENT. HR IS 76.
--- NOTE | 2020-05-25 02:00 | NUR ---
PT CONTINUES TO REST WITH EYES CLOSED. RESP EVEN ANED NONLABORED. PT USING HIGH FLOW OXYGEN AT 60 PERCENT. O2 SAT IS 92 PERCENT.
--- NOTE | 2020-05-25 04:00 | NUR ---
PT TOLERATED RESP TREATMENT WITHOUT DIFFICULTY. HR IS 89. O2 SATS ARE 90 PERCENT.
--- NOTE | 2020-05-25 06:41 | NUR ---
PT WAS GIVEN BED BATH. LINENS CHANGED. PT RECEIVED ORAL CARE. LIPS MOISTURIZED. SKIN WAS REASSESSED. NOT SKIN BREAKDOWN NOTED. NO REDNESS OR SKIN IMPAIRMENT NOTED. PT COUGHING. HR IS 105/46. O2 SAT IS 93 PERCENT.
--- NOTE | 2020-05-25 07:10 | NUR ---
SHIFT REPORT GIVEN FROM OPAL SALAZAR RN. UPON ROUNDING PATIENT IS NOTED RESTING WITH EYES CLOSED. NO ACUTE DISTRESS WAS NOTED.
--- NOTE | 2020-05-25 08:19 | NUR ---
PATIENTS TRAY SETUP AND PATIENT WAS ABLE TO FEED HERSELF AND ATE APPROX. 75% OF HER MEAL AND 2-4 OZ ORANGE JUICE.
--- NOTE | 2020-05-25 08:21 | NUR ---
PATIENT IS AWAKE AND SHIFT ASSESSMENT IS COMPLETED AT THIS TIME. PATIENT STATED SHE HAD GOOD SLEEP LAST NIGHT AND RESTED WELL. PATIENT IS NOTED WITH A CONGESTED COUGH WITH PATIENT ATTEMPTING TO CLEAR UP SECRETIONS BUT UNABLE TO DO SO. 20G TO THE RIGHT AC IS PATENT AND INTACT. 20G TO THE LEFT WRIST IS SALINE LOCKED AND NO S/S OF INFILTRATION NOTED. 22G TO THE RAC IS PATENT AND INTACT AND HAS NO S/S OF INFILTRATION NOTED. ALL IV FLUSH WELL. BOTH LOWER EXTREMITIES ELEVATED ON PILLOWS. BED LOCKED IN LOW POSITION, SIDE RAILS UP X2.
[2020-05-25 08:31] LABS: PLATELET COUNT 154 K/uL (152-353)
--- NOTE | 2020-05-25 08:40 | NUR ---
PATIENT GIVEN HER PILLS AND SHE WAS ABLE TO TAKE THEM WHOLE W/O DIFFICULTY.
[2020-05-25 08:41] LABS: POTASSIUM 3.8 mmol/L (3.6-5.2)
--- NOTE | 2020-05-25 10:07 | NUR ---
PATIENT IS CURRENTLY RESTING WITH EYES CLOSED WITH CURRENT SPO2 SATS AT 93% ON 50LPM --60% ON HIGH FLOW NASAL CANNULA, HR -88 WITH RR-23.
--- NOTE | 2020-05-25 10:46 | NUR ---
HERE ROUNDING ON PATIENT.
--- NOTE | 2020-05-25 11:08 | NUR ---
RT IS HERE AT THE BEDSIDE DOING BREATHING TREATMENTS. CURRENT SPO2 92%, WITH HR-77, RR-21.
--- NOTE | 2020-05-25 12:40 | NUR ---
X-RAY DEPARTMENT HERE TO DO CHEST X-RAY.
--- NOTE | 2020-05-25 13:35 | NUR ---
NOTIFIED REGARDING X-RAY RESULTS. ORDERS GIVEN TO NOTIFY RESPIRATORY TO DO AGRESSIVE PULMONARY HYGIENE- SMART VEST-CPT, DEEP SUCTION LAVAGE IN ATTEMPT TO CLEAR SECRETIONS FROM THE LUNGS. NOTIFIED RT AT THIS TIME.
--- NOTE | 2020-05-25 14:01 | NUR ---
PATIENT PLACED ON THE SMARTVEST AT THIS TIME PER RT DEPARTMENT. PATIENT IS CURRENTLY TOLERATING TREATMENT WELL.
--- NOTE | 2020-05-25 15:38 | NUR ---
PATIENT ASSISTED ON TO THE BEDPAN. PATIENT HAD A LARGE BROWN FORMED BOWEL MOVEMENT. PATIENT CLEANED AND PERICARE PROVIDED AT THIS TIME.
--- NOTE | 2020-05-25 15:52 | NUR ---
RT DOING BREATHING TREATMENT AT THE BEDSIDE WITH PATIENT CURRENT SPO2 SAT 92%, HR 99, B/P 104/37. PATIENT IS TOLERATING WITH INTERMITTENT COUGHING NOTED. WILL CONTINUE TO MONITOR.
--- NOTE | 2020-05-25 17:24 | NUR ---
PATIENT BLOOD PRESSURE NOTED READING LOW ON HER LEFT ARM 87/42. MANUAL BLOOD PRESSURE TAKEN READING 80/52. BLOOD PRESSURE READ ON THE RIGHT ARM AND IT READ 105/54.
--- NOTE | 2020-05-25 17:25 | NUR ---
PATIENT IS RESTING QUIETLY WITH EYES CLOSED WITH CURRENT SPO2 93% ON HIGH FLOW NASAL CANNULA, PATIENT DID TAKE HER NC OFF AND DID DESAT TO THE 86% BUT QUICKLY RECOVERS BACK UP TO 92%. CURRENT BLOOD PRESSURE READING 114/58.
--- NOTE | 2020-05-25 19:37 | NUR ---
RESP AT BEDSIDE. SMART VEST THERAPY IN PROGRESS.
--- NOTE | 2020-05-25 20:21 | NUR ---
PT HAS CONGESTED COUGH. ABLE TO BRING UP SMALL WHITE SECRETIONS.
--- NOTE | 2020-05-25 23:01 | NUR ---
PT EXPRESSED THAT SHE WAS HUNGER. PT WAS ABLE TO EAT THICK GRAVY SOUP. NO DIFFICULTY IN SWALLOWING WAS NOTED. PT HAD MODERATE SOFT BROWN STOOL. PT WAS CLEANED AND NO SKIN BREAKDOWN WAS NOTED. PT WAS REPOSITIONED UP IN BED. CLEAN CHUX AND BRIEFS WERE APPLIED. ALTERATION IN ELIMANATION ADDRESSED. PT STILL CONTINUES TO HAVE CROUPY CONGESTED COUGH.
[2020-05-26] VITALS (16 sets, daily range): BP systolic 93–130; BP diastolic 40–61; TEMP 96.8–98.8
--- NOTE | 2020-05-26 01:50 | NUR ---
PT STILL HAS AUDIBLE CONGESTION. PT DOES COUGH AND ATTEMPTS TO BRING UP SECRETIONS. PT REFUSES TO BE SUCTIONED. SHE STATES THAT SHE DOES THIS ALL THE TIME. ASPIRATION PRECAUTIONS ARE BEING IMPLEMENTED.
--- NOTE | 2020-05-26 04:15 | NUR ---
XRAY HERE TO PERFORM CXR. PT WITH NAD. O2 SAT ARE 99 PERCENT.
[2020-05-26 05:45] LABS: PLATELET COUNT 152 K/uL (152-353)
--- NOTE | 2020-05-26 06:28 | NUR ---
PT HAD LARGE BROWN SOFT STOOL. PT WAS CLEANED. LINENS AND CHUX WERE CHANGED. BRIEF APPLIED. POSITIONED PT ON HER LEFT SIDE. PT TOLERATED. O2 SAT IS 95 PERCENT. PT USING HIGH FLOW OXYGEN.
--- NOTE | 2020-05-26 08:54 | NUR ---
PT ASSISTED WITH STRAIGHTENING UP IN BED AND SAT UPRIGHT IN BED. PT BREAKFAST SET UP AND PT BEGAN TO FEED HERSELF. WILL MONITOR PT.
--- NOTE | 2020-05-26 09:40 | NUR ---
PT CLEANED AND CHANGED AT THIS TIME AND REPOSITIONED IN BED AND PROPPED ON PILLOWS TO RIGHT SIDE. PT NOTED TO HAVE LOOSE BOWEL MOVEMENT AT THIS TIME. LOCO CARE COMPLETED AT THIS TIME. PT'S HEELS FLOATED.
--- NOTE | 2020-05-26 10:00 | NUR ---
RESPIRATORY HERE AT PT'S BEDSIDE TO APPLY SMARTVEST FOR CPT, MADY CARDENAS RN AT BEDSIDE ASSISTING.
--- NOTE | 2020-05-26 10:15 | NUR ---
RESP AT BS TO PERFORM SMART VEST THERAPY. PT TOLERATING WELL WILL MONITOR.
--- NOTE | 2020-05-26 10:35 | NUR ---
HIGH FLOW O2 DECREASED AT THIS TIME TO 50L PER RESP. SATS ON 60L 96-97%. WILL MONITOR PT ON 50L
--- NOTE | 2020-05-26 10:47 | NUR ---
PT SATS 93-94% ON 50L PT RESTING WITH EYES CLOSED NO DISTRESS NOTED.
--- NOTE | 2020-05-26 11:29 | NUR ---
FATUMA, HERE AT PT'S BEDSIDE TO REASSESS PT SINCE O2 DECREASED AND GIVE PT NOON TIME BREATHING TREATMENT.
--- NOTE | 2020-05-26 11:40 | NUR ---
DR MATHIS AT MAKING ROUNDS. INFORMED HIM OF XRAY RESULTS AND URINE CULTURE. NO NEW ORDERS REC'D AT THIS TIME. WILL CONT TO BLANCATR.
--- NOTE | 2020-05-26 11:47 | NUR ---
FATUMA, RT BACK AT PT'S BEDSIDE. PT'S BREATHING TREATMENT COMPLETE AT THIS TIME.
--- NOTE | 2020-05-26 14:04 | NUR ---
THIS NURSE AND MADY CARDENAS RN AT PT'S BEDSIDE TO CLEAN AND CHANGE PT. PT NOTED TO HAVE SMALL LOOSE BM. PT REPOSITIONED TO LEFT SIDE. HEEL FLOATED. ERTAPENEM STARTED. PT C/O NAUSEA ZOFRAN 4MG IV GIVEN AT THIS TIME PER MD ORDERS.
--- NOTE | 2020-05-26 14:35 | NUR ---
PT C/O HEADACHE AND REQUESTS SOMETHING FOR IT. PT STATES "I NORMALLY TAKE THE TYLENOL AND TRAMADOL TOGETHER" PT GIVEN TYLENOL PO AND TRAMADOL PO PER MD ORDERES FOR HEADACHE.
--- NOTE | 2020-05-26 15:27 | NUR ---
PT NOTED TO HAVE MORE COUGHING THAN NOTED PREVIOUSLY. COUGH NOTED TO SOUND WET AND PT CO SHE THINKS SHE NEEDS BREATHING TX BFORE ITS TIME FOR TX. DR MATHIS INFOMRED OF CHANGE IN PT. NEW ORDER REC'D FOR LASIX 40MG IVP X 1 WILL MONITOR OUTPUT.
--- NOTE | 2020-05-26 15:45 | NUR ---
RESPIRATORY AT BEDSIDE TO GIVE ADMINISTER PT'S BREATHING TREATMENT.
--- NOTE | 2020-05-26 19:45 | NUR ---
AWAKE SITTING UP IN BED LOOKING AROUND WITH NO S/S OF PAIN OR DISTRESS NOTED, PT DENIES ANY NEEDS OR PROBLEMS AT THIS TIME, RESP RATE NONLABORED WITH WET COUGH NOTED, O2 IN USE VIA HIGH FLOW NC, COMPRESSED AIR PILE DRIVER OPERATOR IN USE WITH RATE OF 69 REGULAR, SKIN WARM AND DRY, VITALS BEING MONITORED, WILL MONITOR CLOSELY, RAILS UP, BED IN LOW POSITION, CALL LIGHT IN REACH.
--- NOTE | 2020-05-26 21:20 | NUR ---
NOTE PT HAS VERY WET RUMBLING COUGH, PT COUGHING ALOT. SPOKE WITH DR. ASIF RODRIGUEZ IN ER ABOUT PT'S COUGH AND THAT SHE GETS GUAIFENESIN DM PRN AT THE [facility] PER HER HOME MED SHEET. NEW ORDER RECEIVED AT THIS TIME BY VP SCIENTIFIC. GUAIFENESIN DM 100-10MG/5ML LIQUID GIVE 10ML PO X 1 DOSE NOW T.O. R&V DR. GOLD/DOMINIQUE HOLGUIN RN.
--- NOTE | 2020-05-26 22:28 | NUR ---
PT RESTING QUIETLY IN BED WITH EYES CLOSED, NO S/S OF PAIN OR DISTRESS NOTED, RESP RATE NONLABORED, O2 IN USE VIA HIGH FLOW NC WITH O2 SAT 93-95%, LOCO PATENT DRAINING TO BEDSIDE, REPRESENTATIVE PERSONAL SERVICE IN USE WITH RATE IN 60s, NO COUGH NOTED AT THIS TIME AND NOTE COUGH HAS DECREASED SINCE ONE TIME DOSE OF GUAIFENESIN DM WAS GIVEN, VITALS BEING MONITORED, WILL MONITOR CLOSELY, RAILS UP, CALL LIGHT IN REACH. IV SITES INTACT.
[2020-05-27] VITALS (11 sets, daily range): BP systolic 92–118; BP diastolic 40–52; TEMP 98–99
--- NOTE | 2020-05-27 00:04 | NUR ---
PT RESTING IN BED WITH EYES CLOSED, AROUSE BRIEFLY TO DRINK A FEW SIPS OF DRINK PT DENIES ANY PAIN OR OTHER PROBLEMS AT THIS TIME, RESP RATE NONLABORED, LOOSE RATTLING COUGH NOTED BUT NONPRODUCTIVE, IV SITES INTACT, LOCO PATENT, VITALS BEING MONITORED, PT ASSISTED TO REPOSITION IN BED, WILL MONITOR CLOSELY, RAILS UP X3, BED IN LOW POSITION, ENCOURAGED TO CALL NEEDED. O2 IN USE VIA HIGH FLOW NC.
--- NOTE | 2020-05-27 02:10 | NUR ---
CONTINUES TO REST WITH EYES CLOSED, NO S/S OF PAIN OR DISTRESS NOTED, RESP RATE NONLABORED, O2 IN USE VIA HIGH FLOW NC WITH SAT OF 94%, IV LOCK INTACT TO R FA AND L WRIST, LOCO PATENT DRAINING TO BEDSIDE, MANAGER HEMATOLOGY IN USE WITH REGULAR RATE IN 60s, VITALS BEING MONITORED, WILL MONITOR CLOSELY, RAILS UP X3, BED IN LOW POSITION, CALL LIGHT IN REACH.
[2020-05-27 04:29] LABS: PLATELET COUNT 160 K/uL (152-353)
[2020-05-27 04:51] LABS: POTASSIUM 3.9 mmol/L (3.6-5.2)
--- NOTE | 2020-05-27 05:18 | NUR ---
PT AWAKE WITH NO ACUTE DISTRESS NOTED, NOTE WET LOOSE RATTLING COUGH, COUGHING OFTEN BUT STATE SHE CAN NOT COUGH ANYTHING UP(DID NOT COUGH ANYTHING UP WHEN GIVEN GUAIFENESIN DM EARLIER IN SHIFT), BOTH IV SITES INTACT, LOCO PATENT, VITALS BEING MONITORED, BAG LOADER MACHINE OPERATOR IN USE, O2 VIA HIGH FLOW NC WITH SAT OF 93%. DEPEND CHANGED DUE TO INCONTINENT BM, NOTE LARGE VERY LOOSE LIQUIDY BM. REPOSITIONED TO SIDE WITH PILLOW BETWEEN KNEES, PULLED UP IN BED AND HOB ELEVATED. PT DENIES ANY PROBLEMS OR NEEDS, WILL MONITOR CLOSELY, RAILS UP X3, BED IN LOW POSITION.
--- NOTE | 2020-05-27 06:30 | NUR ---
PT AWAKE WITH NO ACUTE DISTRESS. DEPEND CHANGED NOTE MEDIUM BM, PULLED UP AND REPOSITIONED TO L SIDE, FEET ELEVATED ON PILLOW, WILL MONITOR CLOSELY, RAILS UP X3, BED IN LOW POSITION, ENCOURAGED TO CALL NEEDED.
--- NOTE | 2020-05-27 08:15 | NUR ---
RT NIKA HERE AT PT'S BEDSIDE TO GIVE AM BREATHING TREATMENT.
--- NOTE | 2020-05-27 08:25 | NUR ---
NIKA, RT AND I AT PT'S BEDSIDE. BREATHING TREATMENT COMPLETED AT THIS TIME. PT POSITIONED TO HER BACK AND PULLED UP IN BED TO HIGH FOWLERS. ASSISTED NIKA WITH PLACING SMARTVEST ON PT FOR CPT AT THIS TIME. PT STATES "IT'S HARD TO BREATH, IT'S LIKE I CAN'T GET IT OUT" SMARTVEST TURNED ON AND CPT STARTED BY NIKA. MADY CARDENAS RN NOTIFIED OF PT'S STATEMENT AT THIS TIME. PT O2 SATS REMAIN 91% ON HIGH FLOW O2 SETTINGS AT 45 LPM; FIO2-50% BP-107/49 HR-15. WILL INFORM .
--- NOTE | 2020-05-27 08:40 | NUR ---
CPT COMPLETED AT THIS TIME. SMARTVEST REMOVED. PT RESPOSITIONED TO EAT BREAKFAST. MADY CARDENAS RN ASSISTED PT WITH SETTING UP HER BREAKFAST AT THIS TIME. PT DENIES ANY OTHER NEEDS.
--- NOTE | 2020-05-27 09:30 | NUR ---
PT RECEIVING BED BATH PER NURSES AT THIS TIME. PT NOTED TO BE SOILED WITH BM. WHILE CLEANING PT , PT NOTED TO HAVE RECTAL PROLAPSE AT THIS TIME. PT WAS COUGHING PRIOR TO HAVING BM. BM WAS SMALL LOOSE. PT DENIED ANY RECTAL PAIN OR PRESSURE. BED BATH COMPLETED AT THIS TIME. WILL INFORM DR MATHIS OF RECTAL PROLAPSE.
--- NOTE | 2020-05-27 09:40 | NUR ---
DR MATHIS INFORMED OF RECTAL PROLAPSE VIA PHONE. NO NEW ORDERS REC'D AT THIS TIME.
--- NOTE | 2020-05-27 09:45 | NUR ---
BEN SOLIZ NURSE TECH ED TEACHER INFORMED OF RECTAL ISSUES AND DR MATHIS WAS INFORMED. EXPLAINED NO NEW ORDERS REC'D AT THIS TIME.
--- NOTE | 2020-05-27 09:55 | NUR ---
BEN SOLIZ NURSE VICE PRESIDENT OF NEWS SPOKE TO DR MATHIS IN HIS OFFICE ABOUT PT'S RECTAL ISSUES. VERBAL ORDERS REC'D FROM BEN PER DR MATHIS OBTAIN CT OF CHEST FIRST THEN CONSULT DR RUIZ FOR POSSIBLE BRONCH AND RECTAL PROLAPSE. ORDERS PUT IN FOR CHEST CT WITHOUT CONTRAST . CALLED OR AND SPOKE TO ALEKSANDRA CROWLEY RN. EXPLAINED AND INFORMED HER OF DR RUIZ TO CONSULT FOR POSSIBLE BRONCH.
--- NOTE | 2020-05-27 10:30 | NUR ---
PT TAKEN TO XRAY FOR CT OF CHEST VIA BED AT THIS TIME. PRIOR TO [facility] ICU PT CHANGED FROM HIGH FLOW TO NON-REBREATHER AT 15%. PT HOLDING SATS AROUND 93-94%NO ACUTE DISTRESS NOTED AT THIS TIME.
--- NOTE | 2020-05-27 10:36 | NUR ---
CHANGED PATIETN OVER TO NRB AT 100% TO GO TO CT AND PATIENT SATING 93%
--- NOTE | 2020-05-27 10:50 | NUR ---
PT BACK IN ICU FROM CT. PT POSITIONED ONTO LEFT SIDE. PT CHANGED TO NC AT 5L PER NIKA IN RESP. PT'S SATS DECREASED TO 87% DOWN TO 83% ON NC SO PT PLACED ON VENTI-MASK PER RESP AT THIS TIME. SATS 90-93%. WILL CONT TO MONITOR
--- NOTE | 2020-05-27 11:15 | NUR ---
DR RUIZ INFORMED OF SURGICAL CONSULT FOR POSSIBLE BRONCH PER DR MATHIS'S ORDER
--- NOTE | 2020-05-27 11:23 | NUR ---
CALLED DR MATHIS TO INFORM HIM CT REPORT WAS UP AND READY. STATED HE WAS AWARE AND HAD SEEN REPORT. AWAITING CONSULT FOR DR RUIZ. PT RESTING IN BED WITH EYES CLOSED WITH VENTIMASK INTACT. SATS 93% ALL OTHER VS STABLE.
--- NOTE | 2020-05-27 11:40 | NUR ---
PT'S DAUGHTER WAYNE SIFUENTES CALLED TO CHECK ON PT. PT RESTING IN BED WITH EYEYS CLSOED. FAMILY PLACED ON HOLD. I ASKED DR MATHIS IF HE WOULD LIKE TO SPEAK WITH PT'S DAUGHTER AT THIS TIME SHE WAS ON HOLD. DR MATHIS INSSTRUCTED ME TO GIVE UPDATE TO HER ON PT. DR MATHIS STATED HE WOULD BE ON THE FLOOR IF I NEEDED ANYTHING FURTHER. PT'S DAUGHTER GIVEN UPDATE PER MD'S REQUEST. EXPLAINED TO HER WE WAS AWAITING CT RESULTS AND CONSULT WITH DR RUIZ AND WE WOULD NOTIFY HER WITH ANY CHANGES OR NEW ORDERS. PT AND DAUGHTER VERBALIZED UNDERSTANDING.
--- NOTE | 2020-05-27 12:45 | NUR ---
DR RUIZ HERE FRO CONSULT AT THIS TIME AT BS. PT AWAKE AND ALERT AND ORIENTED X 3. PT ABLE TO ANSWER ALL QUESTIONS.ASKED PER MD AND INFOMRED DR RUIZ SHE WOULD THINK ABOUT IT AND LET ME KNOW AND I COULD LET HIM KNOW . DR WIGGINS STATED HE WAS ABLE TO PERFORM BRONCH ON 05-28-20 IF OR ABLE TO SCHEDULE. DR WIGGINS ASKED FOR DR MATHIS TO BE INFORMED OF CONSULT AND PT'S REQUEST. WILL INFORM DR MATHIS INSTRUCTED PER DR RUIZ.
--- NOTE | 2020-05-27 13:00 | NUR ---
ATTEMPTED TO INFORM DR MATHIS OF CONSULT WITH DR RUIZ INSTRUCTED. CALLED OFFICE NO ANSWER WILL TRY BACK AGAIN AT LATER TIME.
--- NOTE | 2020-05-27 13:30 | NUR ---
PT FINISHED EATING LUNCH. 100% OF LUNCH CONSUMED. PT DID HAVE TO BE PLACED ON ADDITIONAL O2 PER NC AT 5L DUE TO NOT KEEPING VENTIMASK ON WHILE EATING. PT SATS MAINTAINED ON NC AT 5L ALONE AFTER EATING SO WILL LEAVE THIS INTACT AND CONT TO MONITOR. CHECKED TO SEE IF PT HAD HAD A BM NO BM NOTED. AT THIS TIME NO RECTAL PROLAPSE NOTED. WILL CONT TO MONITOR,
--- NOTE | 2020-05-27 14:15 | NUR ---
PT C/O HEADACHE RATES 6/10 AT THIS TIME. PT REQUESTS SOME TYLENOL IF SHE CAN HAVE IT. PT GIVEN TYLENOL 650NG PO PER MD ORDERS. WILL CON'T TO MONITOR PT.
--- NOTE | 2020-05-27 14:15 | NUR ---
ATTEMPTED TO CALL DR MATHIS IN OFFICE AGAIN AT THIS TIME CONCERNING CONSULT WITH DR RUIZ AND NO ANSWER AGAIN AT THIS TIME. WILL TRY BACK
--- NOTE | 2020-05-27 14:56 | NUR ---
ATTEMPTED TO CALL DR MATHIS IN OFFICE NO ANSWER WILL TRY AT LATER TIME.
--- NOTE | 2020-05-27 15:26 | NUR ---
DR MATHIS CALLED ICU AND UPDATE GIVEN IN REGAURDS OF CONSULT WITH JOSEPH. NO NEW ORDERS REC'D AT THIS TIME PT RESTING WITH EYES CLOSED
--- NOTE | 2020-05-27 18:11 | NUR ---
PT'S SUPPER TRAY SET UP. PT SAT UP ON SIDE OF BED ON HER OWN WITH MINIMAL ASSISTANCE.
--- NOTE | 2020-05-27 18:25 | NUR ---
PT ON THE CORDLESS PHONE WITH HER DAUGHTER AT THIS TIME. PT EXPLAINING TO HER THAT "SHE SEEN THE SURGEON AND HE RECOMMENDED FOR HER TO GET HER LUNGS WASHED OUT BUT THEY HAVE TO PUT ME TO SLEEP". PT ASSISTED UP TO SIDE OF BED FOR SUPPER. PT REMAINS ON NC AT 5L. AND PT STILL SEITTING UP ON SIDE OF BED AT THIS TIME. WILL CONT TO MONITOR.
--- NOTE | 2020-05-27 18:30 | NUR ---
PT TALKED OVER WITH HER DAUGHTER AND STATED SHE WAS NOT SURE IF SHE WANTED TO HAVE THE BRONCH DONE AT THIS TIME. WILL INFORM DR MATHIS
--- NOTE | 2020-05-27 18:39 | NUR ---
PT INSISTED TO BRUSH HER TEETH AFTER SUPPER AT THIS TIME. SO PT ASSISTED BACK IN BED AND POSITIONED IN HIGH FOWLERS POSITION AFTER BRUSHING HER TEETH. PT REMAINS ON NC 5L WITH SATS 95%.
--- NOTE | 2020-05-27 19:30 | NUR ---
PT AWAKE, ALERT, AND MORE ORIENTED TODAY COMPARED TO YESTERDAY. 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 HOB ELEVATED, BROUGHT PT SPRITE PER REQUEST. PT ASKING INSTRUCTIONAL SUPPORT SERVICES DIRECTOR ABOUT BRONCHOSCOPY PROCEDURE AND STATES THAT HER AND HER DAUGHTER HAVE NOT DECIDED IF THEY WANT PT TO HAVE PROCEDURE DONE OR NOT. WILL MONITOR CLOSELY, RAILS UP, BED IN LOW POSITION, ENCOURAGED TO CALL NEEDED.
--- NOTE | 2020-05-27 20:24 | NUR ---
SPOKE WITH DR. Sony MANSFIELD IN ER ABOUT PT'S COUGH AND PT WANTING COUGH MEDICATION(TAKES GUAIFENESIN DM AT [facility]). NEW TELEPHONE ORDER FOR GUAIFENESIN DM 100-10MG/5L LIQUID GIVE 10MG PO Q [address] PRN R&V DR. MANSFIELD/DOMINIQUE HOLGUIN RN. PT COUGHING ALOT NOTE LOOSE RATTLING WET SOUNDING COUGH.
--- NOTE | 2020-05-27 22:12 | NUR ---
PT AWAKE WATCHING TV WITH NO S/S OF PAIN OR DISTRESS NOTED, TALKATIVE WITH GROUNDSKEEPER PORTER, DENIES ANY PAIN OR PROBLEMS, RESP RATE NONLABORED, LOOSE RATTLING COUGH NOTED AT TIMES, O2 VIA NC AT 5 LPM O2 SAT OF 91%, IV INTACT TO L FA, LOCO PATENT DRAINING TO BEDSIDE, VITALS BEING MONITORED, WATER PURIFIER IN USE WITH RATE IN 60s. WILL MONITOR CLOSELY, RAILS UP, BED IN LOW POSITION, ENCOURAGED TO CALL NEEDED.
[2020-05-28] VITALS (22 sets, daily range): BP systolic 97–129; BP diastolic 44–63; TEMP 97.7–98.4
--- NOTE | 2020-05-28 00:05 | NUR ---
RESTING QUIETLY IN BED WITH EYES CLOSED, NO S/S OF PAIN OR DISTRESS NOTED, RESP RATE NONLABORED, O2 AT 5LPM VIA NC WITH SAT OF 91%, 20G IV LOCK INTACT TO L FA WITH NO PROBLEMS NOTED TO SITE, VITALS BEING MONITORED, LOCO PATENT DRAINING TO BEDSIDE, WAGON PERSON IN USE, WILL MONITOR CLOSELY, RAILS UP, BED IN LOW POSITION.
--- NOTE | 2020-05-28 04:00 | NUR ---
PT AROUSES WITH NO ACUTE DISTRESS NOTED, RESP RATE NONLABORED, O2 AT 5LPM VIA NC WITH O2 SAT OF 94%, SYSTEMS QA ANALYST IN USE WITH RATE OF 72, 16F LOCO PATENT DRAINING TO BEDSIDE, 20G IV LOCK INTACT TO L FA WITH NO PROBLEMS NOTED TO SITE, VITALS BEING MONITORED/STABLE, REPOSITIONED TO BACK AND FEET ELEVATED ON PILLOWS, PT C/O NAUSEA AND ALSO WANTED PRN COUGH MEDICATION WHEN ABLE TO GET IT. GAVE ZOFRAN 4MG SLOW IVP PRN FOR NAUSEA THEN WAITED APPROX 15-20 MINUTES AND GAVE PT COUGH MEDICATION 0420 GAVE GUAIFENESIN DM 10ML PO PRN NOTE PT TOLERATED WITH NO NAUSEA. WILL MONITOR CLOSELY, RAILS UP, BED IN LOW POSITION, ENCOURAGED TO CALL NEEDED.
--- NOTE | 2020-05-28 04:40 | NUR ---
PT RESTING IN BED WITH EYES CLOSED, NO S/S OF PAIN OR DISTRESS NOTED, NO COUGH OR S/S OF NAUSEA NOTED, RESP RATE NONLABORED, O2 IN USE, NO PROBLEMS OR REACTIONS NOTED SINCE GIVEN PRN MEDICATIONS. RAILS UP, BED IN LOW POSITION, WILL MONITOR CLOSELY.
[2020-05-28 04:43] LABS: PLATELET COUNT 163 K/uL (152-353)
--- NOTE | 2020-05-28 05:11 | NUR ---
PT DID NOT WANT ME TO DO SMARTVEST DUE TO NAUSATED AT THIS TIME.
--- NOTE | 2020-05-28 07:46 | NUR ---
REPORT GIVEN BY DOMINIQUE HOLGUIN RN. PATIENT IS RESTING QUIETLY WITH EYES CLOSED. CURRENT B/P 101/46, SPO2 94% ON 5 LPM VIA NC.
--- NOTE | 2020-05-28 08:26 | NUR ---
PATIENTS TRAY SETUP FOR BREAKFAST. PATIENT ASSISTED WITH SITTING UP AT THE BEDSIDE. PATIENT WAS ABLE TO EAT ON HER OWN BUT SHE DOES GET SHORT OF BREATH WITH ACTIVITY WITH O2 SATS DECREASING TO 85-86%. PATIENT ATE 50% OF HER MEAL AND THEN WAS ASSISTED BACK IN THE BED WITH PATIENT BECOMING EASILY WINDED WITH HER STATING " THIS IS A LITTLE MUCH, WAY TO FAST", PATIENTS RR-27. PATIENT REPOSITIONED BACK UP IN THE BED IN HIGH FOWLERS POSITION. PATIENT CURRENTS O2 SATS 91-93%. BED LOCKED IN LOW POSITION, CALL SWIFT WITHIN REACH.
--- NOTE | 2020-05-28 09:56 | NUR ---
PATIENT WAS ABLE TO TAKE HER MEDICATIONS ORALLY W/O DIFFICULTY AT THIS TIME.
--- NOTE | 2020-05-28 10:15 | NUR ---
HERE ROUNDING ON PATIENT. PATIENT STATED SHE WOULD LIKE TO HAVE THE BRONCHOSCOPY DONE. MD AWARE. PATIENT CURRENT SPO2 SATS 91% ON 5 LPM VIA NC.
--- NOTE | 2020-05-28 11:22 | NUR ---
PATIENT JUST COMPLETED HER BREATHING TREATMENT WITH CURRENT SPO2 SATS 91%.
--- NOTE | 2020-05-28 11:26 | NUR ---
SPOKE WITH AND HER REGARDING PATIENT HAVING BRONCHOSCOPY. WANTED TO TALK TO DAUGHTER ON PHONE, CALL TRANSFERRED TO HAND HELD PHONE AND GIVEN TO THE PATIENT AT THIS TIME.
--- NOTE | 2020-05-28 11:35 | NUR ---
PATIENT GIVEN GUAIFENSIN PRN FOR COUGH AT THIS TIME.
--- NOTE | 2020-05-28 13:33 | NUR ---
PATIENT GIVEN LUNCH TRAY AND SHE ATE APPROX. 75% OF HER MEAL. SATS STAYED B/W 85-92% ON 5 LPM VIA NC. PATIENT IS NOW RESTING QUIETLY WITH EYES CLOSED WITH SPO2 SATS 93%. COUGHING HAS DECREASED AND PATIENT NO LONGER HAS A HEADACHE AFTER GIVING TYLENOL EARLIER. WILL CONTINUE TO MONITOR.
--- NOTE | 2020-05-28 14:25 | NUR ---
ERTAPENEM SPIKED AND HUNG AT THIS TIME. PATIENT REQUESTED TOOTHBRUSH AND TOOTHPASTE TO BRUSH HER TEETH. PATIENT PROVIDED ITEMS AND SHE WAS ABLE TO BRUSH HER TEETH W/O ASSISTANCE BUT BECOMES EASILY SHORT OF BREATH AND O2 SATS DROP DOWN TO 87% ON 5LPM VIA NC. PATIENT CUED TO TAKE SMALL BREAKS IN B/W TO CATCH HER BREATH WITH PATIENT FOLLOWING COMMANDS. AFTER ACTIVITY PATIENTS 02 SATS INCREASE TO 92% ON 5 LPM VIA NC. WILL CONTINUE TO MONITOR CLOSELY.
--- NOTE | 2020-05-28 16:19 | NUR ---
NOTIFIED HER DAUGHTER WAS AT THE DOOR. STATED IT WAS OK FOR HER TO COME AND SEE HER. IS AT THE BEDSIDE AT THIS TIME. PATIENT IS TALKING TO HER DAUGHTER AT THIS TIME.
--- NOTE | 2020-05-28 17:45 | NUR ---
ROUNDED ON PATIENT. NO NEW ORDERS GIVEN AT THIS TIME.
--- NOTE | 2020-05-28 18:00 | NUR ---
PATIENTS DAUGHTER BROUGHT PATIENT [facility] WH[facility]%. PATIENT MADE AWARE THAT SHE HAS HER DINNER PLATE AT THE NURSES DESK FOR IF SHE WANTS TO EAT LATER. PATIENT DID NOT WANT ME TO DISCARD HER TRAY. PATIENT ALSO OFFERED BATH AND PATIENT STATED SHE WOULD WAIT UNTIL IN THE MORNING. PATIENT REFUSED AT THIS TIME.
--- NOTE | 2020-05-28 19:30 | NUR ---
RESTING QUIETLY IN BED WITH EYES CLOSED, NO S/S OF PAIN OR DISTRESS NOTED, RESP RATE NONLABORED, O2 IN USE VIA NC AT 5LPM, DOOR SERVICEMAN IN USE WITH REGULAR RATE IN 70s, 16F LOCO PATENT DRAINING TO BEDSIDE, 20G IV LOCK INTACT TO L FA WITH NO PROBLEMS NOTED TO SITE, VITALS BEING MONITORED/STABLE, FEET ELEVATED ON PILLOW AND HOB ELEVATED, WILL MONITOR CLOSELY, RAISL UP X3, BED IN LOW POSITION, CALL LIGHT IN REACH.
--- NOTE | 2020-05-28 19:32 | NUR ---
C/O SOME NAUSEA AND WANTS PRN MED FOR IT. GAVE ZOFRAN 4MG SLOW IVP PRN PER ORDER, WILL MONITOR CLOSELY.
--- NOTE | 2020-05-28 20:15 | NUR ---
PT NOTED TO BE RESTING WITH EYES CLOSED WITH NO ACUTE DISTRESS NOTED, O2 IN USE VIA NC AT 5LPM NOTE PT APPEARS TO BE SLEEPING AND NOTE MOUTH OPEN(MOUTH BREATHER), O2 SAT DROPPED TO 85-87% REPOSITIONED PT O2 SAT INCREASED SOME BUT AFTER A FEW MINUTES WHEN PT APPEARS TO FALL ASLEEP WITH EYES CLOSED O2 SAT DROPPED TO 86-87%, 2030 RESPIRATORY NOW AT BEDSIDE(STEVIE MEIER),CHANGED PT'S O2 TO VENTI MASK WITH FIO2 OF 50%, O2 SAT INCREASED TO 91-92%. WILL CONTINUE TO MONITOR CLOSELY, RAILS UP, BED IN LOW POSITION.
--- NOTE | 2020-05-28 22:55 | NUR ---
AT 2029 CHANGED N/C TO V/M @ 50% DUE TO SPO2 OF 87% SPO2 INCREASED TO 92% ON V/M.
--- NOTE | 2020-05-28 23:00 | NUR ---
RESTING WITH EYES CLOSED, NO S/S OF PAIN OR DISTRESS NOTED, RESP RATE NONLABORED, O2 IN USE VIA VENTI MASK FIO2 50% WITH O2 SAT OF 89-91%, FOLEYL PATENT DRAINING TO BEDSIDE, IV LOCK INTACT TO L FA WITH NO PROBLEMS NOTED TO SITE, VITALS BEING MONITORED, SERVICE ADVOCATE CONTACT IN USE WIHT RATE IN 70s. WILL MONITOR CLOSELY, RAILS UP X3, BED IN LOW POSITION, CALL LIGHT IN REACH.
[2020-05-29] VITALS (23 sets, daily range): BP systolic 102–150; BP diastolic 44–73; TEMP 97.3–98.5
--- NOTE | 2020-05-29 00:17 | NUR ---
AWAKE WITH NO ACUTE DISTRESS NOTED, DENIES ANY PAIN OR PROBLEMS, PULLED UP IN BED AND REPOSITIONED, FEET ELEVATED ON PILLOW, HOB IN LOW ODMO'S PER PT REQUEST, O2 IN USE VIA VENTI MASK, PT SLIGHTLY CONFUSED WHEN AROUSED BY BILLET INSPECTOR WHILE PLACING VENTI MASK BACK OVER PT'S NOSE, REORIENTED NEEDED, WILL MONITOR, RAILS UP X3, BED IN LOW POSITION, ENCOURAGED TO CALL NEEDED.
--- NOTE | 2020-05-29 04:06 | NUR ---
PT AROUSES TO POLL CLERK BEING AT BEDSIDE, DENIES ANY PROBLEMS AT THIS TIME, VITALS BEING MONITORED, ORTHODONTIC TECHNICIAN IN USE, LOCO PATENT, IV LOCK INTACT TO L AC/FA AREA WITH NO PROBLEMS NOTED TO SITE, VENTI MASK IN USE. REPOSITIONED TO L SIDE AND PULLED UP IN BED, FEET ELEVATED ON PILLOW, WILL MONITOR CLOSELY, RAILS UP, BED IN LOW POSITION, ENCOURAGED TO CALL NEEDED.
[2020-05-29 05:29] LABS: PLATELET COUNT 176 K/uL (152-353)
--- NOTE | 2020-05-29 06:04 | NUR ---
PT REMAINS AWAKE SITTING UP IN BED WATCHING TV WITH NO S/S OF DISTRESS OR PROBLEMS NOTED, RESP RATE NONLABORED, O2 IN USE VIA VENTI MASK WITH O2 SAT OF 93%, LOCO PATENT DRAINING TO BEDSIDE, IV LOCK INTACT TO L FA/AC AREA, HOB ELEVATED AND FEET ELEVATED ON PILLOW, WILL MONITOR, RAILS UP, BED IN LOW POSITION, ENCOURAGED TO CALL NEEDED.
--- NOTE | 2020-05-29 08:16 | NUR ---
REPORT GIVEN BY DOMINIQUE HOLGUIN RN. PATIENT IS RESTING QUIETLY IN BED WITH VENTIMASK AT 50% -15 LPM WITH SPO2 AT 94%. IV 20G SALINE LOCKED TO THE LAC AND FLUSHES W/O DIFFICULTY. PATIENT REPOSITIONED UP IN THE BED AND BREAKFAST TRAY SETUP FOR HER. PATIENT SWITCHED FROM VENTI MASK TO 02 AT 6LPM VIA NC TO BE ABLE TO EAT BREAKFAST PATIENT CURRENT SPO2 85%. PATIENT ATE ABOUT 50% OF HER MEAL.
--- NOTE | 2020-05-29 08:31 | NUR ---
PATIENT PLACED BACK ON VENTIMASK AT 50%-15 LPM WITH SPO2 89%. RR-20.
--- NOTE | 2020-05-29 10:16 | NUR ---
HERE ROUNDING ON PATIENT. NEW ORDERS GIVEN FOR LASIX 40 MG X1 SIV PUSH. ORDERS PLACED IN COMPUTER AT THIS TIME.
--- NOTE | 2020-05-29 11:15 | NUR ---
PATIENT COMPLAINED OF NAUSEA. ZOFRAN 4 MG GIVEN IV PUSH. WILL REASSESS FOR RELIEF OF SYMPTOMS.
--- NOTE | 2020-05-29 11:35 | NUR ---
RT MÓNICA AT THE BEDSIDE DOING TREATMENT. PATIENT IS TOLERATING WELL WITH CURRENT SPO2 94%, HR-71, RR-22.
--- NOTE | 2020-05-29 12:20 | NUR ---
EMPTIED PATIENT LOCO AND APPROX. 1000 ML OF CLEAR YELLOW URINE NOTED.
--- NOTE | 2020-05-29 12:48 | NUR ---
PATIENT LUNCH TRAY SETUP AND PATIENT ASSISTED TO THE EDGE OF THE BED. PATIENT REQUESTED THIS NURSE ASSIST HER WITH EATING. PATIENT TAKEN OFF VENTIMASK AND PLACED ON NASAL CANNULA AT 6LPM SO SHE COULD EAT WITH PATIENTS CURRENT SPO2 FLUCTUATING B/W 85-88%. PATIENT ATE 80% OF HER MEAL. AFTER EATING, PATIENT ASSISTED BACK TO HIGH FOWLERS POSITION AND PLACED BACK ON THE VENTIMASK AT 50% WITH SPO2 AT 91%, RR-22, B/P 131/61.
--- NOTE | 2020-05-29 15:24 | NUR ---
PATIENT REPOSITIONED UP IN THE BED TO HIGH FOWLERS POSITION. PATIENT EXPRESSED DISCOMFORT TO HER NECK AND SHOULDERS AND REQUESTED SOMETHING FOR PAIN. PATIENT DESCRIBES PAIN ACHING AND INTERMITTENT AND RATES THE PAIN A 10 ON A PAIN SCALE 0-10. PATIENT GIVEN TRAMADOL 50 MG PO. WILL REASSESS FOR DECREASE IN PAIN.
--- NOTE | 2020-05-29 16:30 | NUR ---
1HR POST TRAMADOL PATIENT IS RESTING COMFORTABLY WITH EYES CLOSED. TORRES LANDIS SCORE 3. WILL CONTINUE TO MONITOR.
--- NOTE | 2020-05-29 17:00 | NUR ---
PATIENT GIVEN A COMPLETE BED BATH AND ALL LINENS CHANGED. WHEN BATHING PATIENT NOTED WITH RASH TO BILATERAL GROIN FOLDS AND UNDER THE RIGHT BREAST. PATIENT ALSO C/O IRRITATION TO HER MOUTH AND TONGUE. TONGUE ASSESSED AND IT WAS NOTED SLIGHTLY RED IN COLOR. WILL NOTIFY OF NEW FINDINGS.
--- NOTE | 2020-05-29 17:29 | NUR ---
500 ML OF CLEAR YELLOW URINE EMPTIED FROM LOCO CATHETER.
--- NOTE | 2020-05-29 17:35 | NUR ---
NOTIFIED OF NEW FINDINGS -SEE NURSES NOTED. NEW ORDER GIVEN FOR NYSTOP POWDER AND DIFLUCAN PO WAS ENTERED IN THE COMPUTER.
--- NOTE | 2020-05-29 18:27 | NUR ---
PATIENT ASSISTED WITH EATING SUPPER REQUESTED PER PATIENT. PATIENT APPROX. 25% OF HER MEAL. PATIENT WAS PLACED ON A 6LPM NC WHILE EATING WITH SATS MAINTAINING B/W 86-89%. AFTER MEAL PATIENT ASSISTED WITH REPOSITIONING UP IN THE BED TO HIGH FOWLERS POSITION AND PLACED BACK ON VENTI MASK 50% WITH SATS INCREASING TO 94%, RR-24,HR-77 B/P 137/68.
--- NOTE | 2020-05-29 19:15 | NUR ---
RESP HERE AND PT RECEIVING NEB TREATMENT.
--- NOTE | 2020-05-29 22:00 | NUR ---
PT VERY ANXIOUS WITH THE VENTI MASK. RESP ASSITED WITH CHANGING PT BACK TO NASAL CANNULA. PT HAS O2 SATS OF 92. PT MORE COMFORTABLE WITH NC. PT HAS BEEN COUGHING UP THIN CLEAR THIN SECRETIONS. PT WAS ABLE TO TAKE HER PO MEDICATIONS. PT HAS BEEN REPOSITIONED 4 TIMES TO FACILATATE BREATHING AND COMFORT. PT DRANK WATER AND COLA.
--- NOTE | 2020-05-29 22:13 | NUR ---
PT RESTING WITH EYES CLOSED. O2 SAT IS 93 PERCENT. PT DOES CONTINUE TO COUGH.
--- NOTE | 2020-05-29 23:24 | NUR ---
PLACED PT ON NRB @ 100% DUE TO SPO2 DROPPING. SPO2 ON NRB @ 93% NURSE NOTIFIED.
[2020-05-30] VITALS: BP 117/54
--- NOTE | 2020-05-30 01:37 | NUR ---
PT HAS TOLERATED THE USE OF NRB. O2 SATS ARE 97 TO 98 PERCENT. PT IS ABLE TO REST. HR IS 76. PT IS CALM. PT IS FULL CODE STATUS.
[2020-05-30 03:58] LABS: PLATELET COUNT 188 K/uL (152-353)
--- NOTE | 2020-05-30 04:07 | NUR ---
DR. DONAL BENEDICT.
[2020-05-30 04:12] LABS: POTASSIUM 4.4 mmol/L (3.6-5.2); SODIUM 141 mmol/L (136-145)
--- NOTE | 2020-05-30 04:53 | NUR ---
NOTED BRADYCARDIC AT 30 BPM. TO BEDSIDE. ASSESSED PT NO HEART BEAT. UNABLE TO OBTAIN BP. RESP AT BED AMBUING AND CODE WAS CALLED. 04:53AM EPI [address] MANSFIELD AT BEDSIDE. CODE BLUE IN PROGRESS. 04:55AM EPINEPHRINE 1 AMP REPEATED. NO CHANGES. 05:00AM ANALYZING RHYTHM -NO SHOCK. 05:01AM CPR IN PROGRESS. 05:01AM SODIUM BICARB PUSHED IV. NO CHANGES. 05:02AM ANALZYING RHYTHM-NO SHOCK. 05:03AM CPR IN PROGRESS. 05:05AM ANALYZING RHYTHM. 05:06am 10 UNITS OF INSULIN R GIVEN. 05:08AM 4TH EPINEPHRINE GIVEN. NO CHANGES. CPR IN PROGRESS. NO CHANGES. NO SHOCKABLE RHYTHM. PT PRONOUNCED PER .
--- NOTE | 2020-05-30 05:20 | NUR ---
CONTACTED PT'S FAMILY AND SPOKE WITH MR. SIFUENTES. INFORMED OF PATIENTS PASSING AND TREATMENT THAT WAS GIVEN. INFORMED THAT [facility] WERE IN CHARGE OF HER CARE. 05:30 DR. MANSFIELD CALLED AND TALKED TO MR. SIFUENTES AND INFORMED HIM OF THE EVENT AND TREATMENT THAT WAS RENDERED.
--- NOTE | 2020-05-30 06:48 | NUR ---
07:53AM JONG BOWEN HOME PRESENT. DATED PAPER SIGNED AND COPY OF FACE SHEET GIVEN.
== END 2020-05-30 05:09 | disposition expired | DRG 193 ==
LOC: ED 19:21 → ICU 21:00
PROVIDERS: Internal Medicine Endocrinology, Diabetes & Metabolism; ADMIT Hospitalist; ATTEND Internal Medicine
DX: J18.8 Other pneumonia, unspecified organism (principal); J96.01 Acute respiratory failure with hypoxia; N17.8 Other acute kidney failure; N39.0 Urinary tract infection, site not specified; I95.89 Other hypotension; F03.90 Unspecified dementia, unspecified severity, without behavioral disturbance, psychotic disturbance, mood disturbance, and anxiety; E03.8 Other specified hypothyroidism; N32.81 Overactive bladder; G62.89 Other specified polyneuropathies; K21.9 Gastro-esophageal reflux disease without esophagitis; K59.09 Other constipation; G20 Parkinson's disease; I11.0 Hypertensive heart disease with heart failure; I50.9 Heart failure, unspecified; I69.391 Dysphagia following cerebral infarction; R13.19 Other dysphagia; B96.89 Other specified bacterial agents as the cause of diseases classified elsewhere; K62.3 Rectal prolapse; I46.9 Cardiac arrest, cause unspecified
CPT/HCPCS: 36415; 36600; 51702; 80053; 81000; 82550; 82805; 83605; 83735; 83880; 84484; 85007; 85027; 85610; 85730; 87040; 87077; 87086; 87088; 87186; 87635; 87651; 92950; 93005; 94640; 94660; 94664; 94667; 94668; 94760; 96360; 96361; 96365; 96366; 96375; 99285; J0171; J1100; J1335; J1650; J1815; J1940; J1956; J2405; J2543; J3370; J3490; J7060; U0003